=== PATIENT | female | born 1960 | race Caucasian/White ===

== ENCOUNTER 2016-05-06 15:13 | Emergency (ER) | payer OTHER ==
[~2016-05-06 15:13] MED LIST: /ESCI20TA; CETI10TA; ESTR3TA; IBUP800T; PREM0.9T; VICO5TAB
[2016-05-06 15:53] LABS: BASO % 0.6 % (0.0-1.0); EOS # 0.2 K/mm3 (0.0-0.50); EOS % 3.8 % (0.0-3.0); LARGE UNSTAINED CELL # 0.3 K/mm3 (0.0-0.4); LARGE UNSTAINED CELL % 4.7 % (0.0-4.0); LYMPH # 1.7 K/mm3 (1.5-4.5); LYMPH % 29.8 % (24.0-44.0); MEAN CORPUSCULAR HEMOGLOBIN 30.4 pg (27.0-33.0); MEAN CORPUSCULAR HGB CONC 34.5 g/dl (32.0-36.5); MEAN CORPUSCULAR VOLUME 88.2 fl (80.0-96.0); MONO # 0.3 K/mm3 (0.0-0.8); MONO % 5.5 % (0.0-5.0); NEUTROPHILS # 3.1 K/mm3 (1.8-7.7); NEUTROPHILS % 55.6 % (36.0-66.0); PLATELET COUNT, AUTOMATED 193 k/mm3 (150-450); RED CELL DISTRIBUTION WIDTH 12.2 % (11.5-14.5); WHITE BLOOD COUNT 5.6 K/mm3 (4.0-10.0)
[2016-05-06] MEDS ORDERED: ASPIRIN 81 MG CHEW TABLET As Ordered ONE (16:00)
[2016-05-06 16:09] LABS: ALBUMIN 3.5 GM/DL (3.2-5.2); ALBUMIN/GLOBULIN RATIO 0.88 (1.00-1.93); ALKALINE PHOSPHATASE 72 U/L (45-117); ALT/SGPT 39 U/L (12-78); ANION GAP 7 MEQ/L (8-16); AST/SGOT 25 U/L (15-37); BILIRUBIN,DIRECT 0.1 MG/DL (0.0-0.2); BILIRUBIN,TOTAL 0.4 MG/DL (0.2-1.0); BLOOD UREA NITROGEN 11 MG/DL (7-18); CALCIUM LEVEL 9.1 MG/DL (8.5-10.1); CARBON DIOXIDE LEVEL 32 MEQ/L (21-32); CHLORIDE LEVEL 105 MEQ/L (98-107); CREATININE FOR GFR 0.82 MG/DL (0.55-1.02); GLOMERULAR FILTRATION RATE > 60.0 (>51); GLUCOSE, FASTING 93 MG/DL (70-105); POTASSIUM SERUM 3.7 MEQ/L (3.5-5.1); SODIUM LEVEL 144 MEQ/L (136-145); TOTAL PROTEIN 7.5 GM/DL (6.4-8.2)
--- NOTE | 2016-05-06 17:10 | REP ---
Clinical: Chest pain . Comparison: None . Findings: The mediastinum and cardiac silhouette are stable and within normal limits for portable technique. The lung felix are clear without acute consolidation, effusion, or pneumothorax. Skeletal structures are intact. Impression: Normal portable chest x-ray Signed by Sincere Rolon MD 05/06/2016 05:02 P
--- NOTE | 2016-05-06 22:54 | EDDOCDS ---
Physician Documentation [facility] Name: Destinee Lay Age: 55 yrs Sex: Female : 1960 Arrival Date: 05/06/2016 Time: 15:13 Bed OBSERVATION Private MD: DEVANTE Newell Disposition: 05/06/16 22:44 Discharged to Home/Self Care. Impression: Chest pain, unspecified. - Condition is Stable. - Prescriptions for Aspirin 81 mg - take 1 tablet by ORAL route once daily; 90 tablet. - Medication Reconciliation, Local Pharmacy Hours form. - Follow up: Rob Atkinson; When: Call to arrange an appointment; Reason: Recheck today's complaints. - Problem is new. - Symptoms have improved. HPI: 05/06 15:50 This 55 yrs old Female presents to ER via Ambulance with complaints of Chest pc Pressure. 15:50 The history is obtained from the patient. She has multiple complaints. She has not pc "felt herself" for 2 weeks without being able to describe what she means; she was started on a statin 10 days ago for cholesterol and developed n/v/d 2 days later, for which she was seen at an urgent care and treated with Zofran; she has chronic right ear pressure, for many years that has been bothering her more often lately; she had an episode of feeling dizzy upon standing 2 days ago and describes the room spinning which no longer occurs; and the reason for her EMS call today was that she has been having pain in her left upper arm that radiates into her neck and left upper chest that started 16 hours ago and is still ongoing. At their worst, the symptoms were mild. In the emergency department, the symptoms are unchanged. There were no modifying factors noted. Historical: - Allergies: Codeine Sulfate (Vomit); - Home Meds: 1. escitalopram oxalate 20 mg oral tab 1 tab once daily (Last dose: 05/06/2016 09:00) 2. cetirizine 10 mg oral chew 1 tab once daily (Last dose: 05/05/2016 09:00) 3. pravastatin 40 mg oral tab 1 tab once daily (Last dose: 05/05/2016 09:00) 4. Augmentin 875-125 mg Oral tab 1 tab every 12 hours (Last dose: 04/30/2016) 5. ondansetron HCl 4 mg Oral tab 4 mg every 8 hours (Last dose: 05/02/2016) - PMHx: ankylosing spondolosis; Depression; HLAB27; Seasonal Allergies; sinus infection; - PSHx: 2 c-sections; Hysterectomy; - The history from nurses notes was reviewed: and I agree with what is documented. - Social history: Smoking status: Patient states was never smoker of tobacco. No barriers to communication noted, The patient speaks fluent Malagasy, Speaks appropriately for age. - : The pt / caregiver states he / she is not on anticoagulants. Home medication list is obtained from the patient, pill bottles. - Hospitalizations: : No recent hospitalization is reported. - Exposure Risk Screening:: None identified. - Immunization history:: All immunizations up-to-date. - Family history: Not pertinent. - Social history:: the patient is a non-smoker, the patient does not drink alcohol. 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 pc Exam: 15:50 General Appearance: no acute distress, alert. pc 15:50 EENT: normal eye inspection, ears, nose and throat normal, pharynx normal, mucous membranes moist 15:50 Neck: The exam reveals no acute abnormalities. ROM is normal and painless. No nuchal rigidity is noted.. 15:50 Respiratory: no respiratory distress, normal breath sounds, chest non-tender. 15:50 CVS: regular pulse rate, regular rhythm, normal S1 and S2, no murmurs, strong peripheral pulses, normal capillary refill. 15:50 Abdomen: soft, non-tender, no organomegaly, normal bowel sounds. 15:50 Back: normal inspection. 15:50 Skin: skin color is normal, warm, dry. 15:50 Extremities: The extremities have a grossly normal appearance, are non-tender, without acute ROM abnormalities, no pedal edema. 15:50 Neuro: oriented x 3, cranial nerves normal as tested, no motor deficits, no sensory deficits, normal gait. 15:50 Psych: mood is depressed, affect is flat. Vital Signs: 15:31 BP 196 / 86; Pulse 62; Resp 20; Pulse Ox 97% on R/A; Weight 130.18 kg / 287 lbs (R); jmb Height 5 ft. 3 in. (160.02 cm) (R); Pain 9/10; 15:31 BP 196 / 86 (auto/); jmb 15:31 Pulse 62 MON; Pulse Ox 95% ; jmb 15:43 BP 170 / 88 LA Supine (man/lg); jmb 15:46 BP 180 / 87 (auto/); jmb 15:46 Pulse 66 MON; Pulse Ox 82% ; jmb 16:02 BP 184 / 84 (auto/); jmb 16:02 Pulse 66 MON; Pulse Ox 95% ; jmb 16:08 BP 176 / 79 (auto/); jmb 16:09 Pulse 70 MON; Pulse Ox 92% ; jmb 16:16 BP 158 / 75 (auto/); jmb 16:16 Pulse 54 MON; Pulse Ox 94% ; jmb 16:23 Temp 97.9(O); jmb 16:46 BP 154 / 72 (auto/); jmb 16:46 Pulse 58 MON; Pulse Ox 96% ; jmb 17:01 BP 149 / 70 (auto/); jmb 17:01 Pulse 54 MON; Pulse Ox 95% ; jmb 17:16 BP 149 / 72 (auto/); jmb 17:16 Pulse 54 MON; Pulse Ox 92% ; jmb 17:31 BP 151 / 79 (auto/); jmb 17:31 Pulse 54 MON; Pulse Ox 92% ; jmb 17:46 BP 160 / 72 (auto/); jmb 17:46 Pulse 54 MON; Pulse Ox 92% ; jmb 18:01 BP 158 / 71 (auto/); jmb 18:01 Pulse 60 MON; Pulse Ox 94% ; jmb 20:52 BP 141 / 75 (auto/); jmb 20:52 Pulse 56 MON; Pulse Ox 92% ; jmb 22:05 BP 134 / 65 (auto/); jmb 22:05 Pulse 56 MON; Pulse Ox 92% ; jmb 22:46 BP 142 / 75; Pulse 54; Resp 18; Temp 98.3(TE); Pulse Ox 95% on R/A; Pain 8/10; sonia 15:31 Body Mass Index 50.84 (130.18 kg, 160.02 cm) [place]renton MDM: 15:24 ECG WITH READING ER PHYS+CARDIAG ordered. EDMS 15:47 Aspirin Chewable Tablet 324 mg PO once ordered. pc 15:47 Interior Design Principal/Pulse Ox/q 30 min VS ordered. pc 15:47 IV Saline Lock ordered. pc 15:47 Rhythm Strip to chart ordered. pc 15:48 Test interpretation: EKG. pc 15:49 Basic Metabolic Profile Ordered. EDMS 15:49 CBC with Diff Ordered. EDMS 15:49 Cardiac Injury Profile Ordered. EDMS 15:49 Troponin Ordered. EDMS 15:49 Liver Profile Ordered. EDMS 15:49 Lipase Ordered. EDMS 15:49 portable chest Ordered. EDMS 15:50 Differential Diagnosis: chest pain for 16 hours with cardiac risk factors r/o ACS; pc multiple vague complaints without emergent presentation that may be evaluated by her PCP as an out-patient. Plan: labs, EKG, CXR, meds. 16:13 Basic Metabolic Profile Reviewed. pc 16:13 CBC with Diff Reviewed. pc 16:13 Liver Profile Reviewed. pc 16:13 Cardiac Injury Profile Reviewed. pc 16:13 Troponin Reviewed. pc 16:13 Lipase Reviewed. pc 16:14 Redraw CIP &Troponin (put time in details section) ordered. pc 16:14 Repeat EKG (put time details section) ordered. pc 16:22 Redraw CIP &Troponin (put time in details section) complete. deg 16:22 Repeat EKG (put time details section) complete. deg 16:23 CARDIAC MARKER PANEL Ordered. EDMS 16:24 ECG WITH READING ER PHYS ordered. EDMS 16:28 Financial registration complete. zo 16:29 [facility] Agreement was scanned into [employer] and attached to record. zo 22:41 CARDIAC MARKER PANEL Reviewed. cs11 22:41 portable chest Reviewed. cs11 22:42 ED course: Asked to follow second set of cardiac markers and EKG. EKG with sinus rate cs11 at 56 and unchanged morphology from the first. The cardiac markers are also normal.. EC:48 Rate is 61 beats/min. Rhythm is regular, Normal Sinus Rhythm. QRS [place] is Normal. IN pc interval is normal. QRS interval is normal. QT interval is normal. No Q waves. T waves are Inverted in leads III, V1, V2. No ST changes noted. Clinical impression: Normal Sinus Rhythm and Nonspecific ST-T changes. No change from previous ECG in January,. Administered Medications: 16:02 Drug: Aspirin 324 mg [aspirin 81 mg chewable tablet (4 tabs)] Route: PO; dara Signatures: Dispatcher [employer] Christopher Porter MD MD pc Karley Ernst, Gauge And Weigh Machine Adjuster Unit deg Clarisa Thorne Craig, DO DO cs11 Alvaro Ventura,RN RN turnerb The chart was reviewed and I authenticate all verbal orders and agree with the evaluation and treatment provided.Attachments: 16:29 [facility] Payment Agreement zo [email or web address]
--- NOTE | 2016-05-06 22:54 | EDDOCDS ---
Nurse's Notes [facility] Name: Destinee Lay Age: 55 yrs Sex: Female : 1960 Arrival Date: 05/06/2016 Time: 15:13 Bed OBSERVATION Private MD: [facility] Diagnosis: Chest pain, unspecified Presentation: 05/06 15:18 Presenting complaint: EMS states: Patient reports of chest pressure and radiates up jmb behind ears. Pain started 24 hours ago. Patient reports only moving around in bedroom when pressure started. Patient reports when she moves she gets dizzy and nausea, relieved by rest. Patient has not taken her bp meds today, 170/110 by EMS. Aspirin was not taken prior to arrival. Adult Sepsis Screening: The patient does not have new or worsening altered mentation. Patient's respiratory rate is less than 22. Systolic blood pressure is greater than 100. Patient has a qSOFA score of 0- Negative Sepsis Screen. Suicide/Homicide risk assessment- the patient denies having any suicidal and/or homicidal ideations and does not present with any other emotional, behavioral or mental health complaints. 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 Transition of care: patient was not received from another setting of care. 15:18 Acuity: JAZIEL Level 3 [facility] 15:18 Method Of Arrival: Ambulance [facility] Triage Assessment: 15:26 General: Appears in no apparent distress, Behavior is appropriate for age, cooperative. b Pain: Location: chest Pain currently is 9 out of 10 on a pain scale. Pain radiates to to neck. HIV screening NA for this visit Offered previously. Neurological: Level of Consciousness is awake, alert, obeys commands, Oriented to person, place, time, Material Control Analyst are equal bilaterally Speech is normal, Facial symmetry appears normal, Facial symmetry: tongue is midline. Cardiovascular: Capillary refill < 3 seconds Heart tones present Pulses are all present. Rhythm is regular Chest pain is described as mild, radiates neck episodes are intermittent began 24 hours ago. Respiratory: Airway is patent Respiratory effort is even, unlabored, Respiratory pattern is regular, symmetrical, Breath sounds are clear bilaterally. GI: Abdomen is obese, Bowel sounds present X 4 quads. Abd is soft and non tender X 4 quads. Derm: Skin is pink, warm & dry. Musculoskeletal: Range of motion intact in all extremities. DIRECTOR CLIENT: 15:26 LMP N/A - Hysterectomy jmb Historical: - Allergies: Codeine Sulfate (Vomit); - Home Meds: 1. escitalopram oxalate 20 mg oral tab 1 tab once daily (Last dose: 05/06/2016 09:00) 2. cetirizine 10 mg oral chew 1 tab once daily (Last dose: 05/05/2016 09:00) 3. pravastatin 40 mg oral tab 1 tab once daily (Last dose: 05/05/2016 09:00) 4. Augmentin 875-125 mg Oral tab 1 tab every 12 hours (Last dose: 04/30/2016) 5. ondansetron HCl 4 mg Oral tab 4 mg every 8 hours (Last dose: 05/02/2016) - PMHx: ankylosing spondolosis; Depression; HLAB27; Seasonal Allergies; sinus infection; - PSHx: 2 c-sections; Hysterectomy; - The history from nurses notes was reviewed: and I agree with what is documented. - Social history: Smoking status: Patient states was never smoker of tobacco. No barriers to communication noted, The patient speaks fluent Kos[place], Speaks appropriately for age. - : The pt / caregiver states he / she is not on anticoagulants. Home medication list is obtained from the patient, pill bottles. - Hospitalizations: : No recent hospitalization is reported. - Exposure Risk Screening:: None identified. - Immunization history:: All immunizations up-to-date. - Family history: Not pertinent. - Social history:: the patient is a non-smoker, the patient does not drink alcohol. Screenin:04 Screening information is obtained from the patient. Fall risk: No risks identified. jmb Assistance ADL's: requires no assistance with activities of daily living. Abuse/DV Screen: The patient / caregiver reports he/she is: not in a situation that causes fear, pain or injury. Nutritional screening: No deficits noted. home support is adequate. 22:51 Advance Directives: Currently, there is no health care proxy. There is no active DNR b order. There is no living will. There is no Power of Hand Cloth Examiner. Assessment: 16:04 General: Appears in no apparent distress, Behavior is appropriate for age, cooperative, jmb Patient up to commode with assist of GENERAL STORE MANAGER. NO voiced complaints at this time. . Neurological: Level of Consciousness is awake, alert, obeys commands, Oriented to person, place, time, Speech is normal, Facial symmetry appears normal, Facial symmetry: tongue is midline. Cardiovascular: Capillary refill < 3 seconds Heart tones present Pulses are all present. Rhythm is sinus rhythm No ectopy. Respiratory: Airway is patent Respiratory effort is even, unlabored, Respiratory pattern is regular, symmetrical, Breath sounds are clear bilaterally. GI: Abdomen is obese, Bowel sounds present X 4 quads. Abd is soft and non tender X 4 quads. Derm: Skin is pink, warm & dry. Musculoskeletal: Range of motion intact in all extremities. 16:49 General: Appears in no apparent distress, comfortable, Behavior is appropriate for age, jmb cooperative, Patient laying on stretcher with at bedside. Patient voices no complaints at this time. . Neurological: Level of Consciousness is awake, alert, obeys commands, Oriented to person, place, time. Respiratory: Airway is patent Respiratory effort is even, unlabored, Respiratory pattern is regular, symmetrical. 17:20 General: Appears in no apparent distress, comfortable, Behavior is appropriate for age, jmb cooperative, Patient laying on stretcher with family at bedside. Patient denies discomfort at this time. . Neurological: Level of Consciousness is awake, alert, obeys commands, Oriented to person, place, time. Respiratory: Airway is patent Respiratory effort is even, unlabored, Respiratory pattern is regular, symmetrical. 18:12 General: Appears in no apparent distress, comfortable, Behavior is appropriate for age, jmb cooperative, Patient laying on stretcher, patient denies discomfort at this time. . Neurological: Level of Consciousness is awake, alert, obeys commands, Oriented to person, place, time, Speech is normal. Respiratory: Airway is patent Respiratory effort is even, unlabored, Respiratory pattern is regular, symmetrical. 18:58 General: Appears in no apparent distress, comfortable, Behavior is appropriate for age, jmb cooperative. Neurological: Level of Consciousness is awake, alert, obeys commands, Oriented to person, place, time. Respiratory: Airway is patent Respiratory effort is even, unlabored, Respiratory pattern is regular, symmetrical. 19:30 General: Appears in no apparent distress, comfortable, Behavior is appropriate for age, jmb cooperative, Patient laying on stretcher, voices no complaints at this time. . Neurological: Level of Consciousness is awake, alert, obeys commands, Oriented to person, place, time. Respiratory: Airway is patent Respiratory effort is even, unlabored, Respiratory pattern is regular, symmetrical. 20:17 General: Appears in no apparent distress, comfortable, Behavior is appropriate for age, jmb cooperative. Neurological: Level of Consciousness is awake, alert, obeys commands, Oriented to person, place, time. Respiratory: Airway is patent Respiratory effort is even, unlabored, Respiratory pattern is regular, symmetrical. 20:54 General: Appears in no apparent distress, comfortable, Behavior is appropriate for age, jmb cooperative, Patient laying on stretcher watching television with at bedside. NO voiced complaints at this time. . Neurological: Level of Consciousness is awake, alert, obeys commands, Oriented to person, place, time. Respiratory: Airway is patent Respiratory effort is even, unlabored, Respiratory pattern is regular, symmetrical. 22:13 General: Appears in no apparent distress, comfortable, Behavior is appropriate for age, jmb cooperative, Patient laying on stretcher watching television. Patient at bedside. Second set of labs drawn per orders. No complaints voiced at this time. . Neurological: Level of Consciousness is awake, alert, obeys commands, Oriented to person, place, time. Respiratory: Airway is patent Respiratory effort is even, unlabored, Respiratory pattern is regular, symmetrical. 22:51 General: Patient instructed on discharge instructions. Patient asked if there were any b questions regarding discharge instructions, patient stated no. IV discontinued per hospital policy. Patient signed discharge instructions. Patient discharged in stable condition. . Vital Signs: 15:31 BP 196 / 86; Pulse 62; Resp 20; Pulse Ox 97% on R/A; Weight 130.18 kg (R); Height 5 ft. jmb 3 in. (160.02 cm) (R); Pain 9/10; 15:31 BP 196 / 86 (auto/); jmb 15:31 Pulse 62 MON; Pulse Ox 95% ; jmb 15:43 BP 170 / 88 LA Supine (man/lg); jmb 15:46 BP 180 / 87 (auto/); jmb 15:46 Pulse 66 MON; Pulse Ox 82% ; jmb 16:02 BP 184 / 84 (auto/); jmb 16:02 Pulse 66 MON; Pulse Ox 95% ; jmb 16:08 BP 176 / 79 (auto/); jmb 16:09 Pulse 70 MON; Pulse Ox 92% ; jmb 16:16 BP 158 / 75 (auto/); jmb 16:16 Pulse 54 MON; Pulse Ox 94% ; jmb 16:23 Temp 97.9(O); jmb 16:46 BP 154 / 72 (auto/); jmb 16:46 Pulse 58 MON; Pulse Ox 96% ; jmb 17:01 BP 149 / 70 (auto/); jmb 17:01 Pulse 54 MON; Pulse Ox 95% ; jmb 17:16 BP 149 / 72 (auto/); jmb 17:16 Pulse 54 MON; Pulse Ox 92% ; jmb 17:31 BP 151 / 79 (auto/); jmb 17:31 Pulse 54 MON; Pulse Ox 92% ; jmb 17:46 BP 160 / 72 (auto/); jmb 17:46 Pulse 54 MON; Pulse Ox 92% ; jmb 18:01 BP 158 / 71 (auto/); jmb 18:01 Pulse 60 MON; Pulse Ox 94% ; jmb 20:52 BP 141 / 75 (auto/); jmb 20:52 Pulse 56 MON; Pulse Ox 92% ; jmb 22:05 BP 134 / 65 (auto/); jmb 22:05 Pulse 56 MON; Pulse Ox 92% ; jmb 22:46 BP 142 / 75; Pulse 54; Resp 18; Temp 98.3(TE); Pulse Ox 95% on R/A; Pain 8/10; sonia 15:31 Body Mass Index 50.84 (130.18 kg, 160.02 cm) [facility] Vitals: 15:26 Log In Time N/A - ambulance arrival. [facility] ED Course: 15:14 Patient visited by Virgie Figueroa PCA. rs6 15:14 [facility] is Private Physician. rs6 15:14 Patient moved to Waiting rs6 15:14 Patient moved to 11 rs6 15:15 Christopher Castro MD is Attending Physician. pc 15:20 Triage Initiated [facility] 15:37 Patient visited by Gigi Zuniga. tk 15:37 EKG done. (by ED staff). Reviewed by Christopher Castro MD. tk 15:51 Lipase Sent. ms18 15:51 Liver Profile Sent. ms18 15:51 Basic Metabolic Profile Sent. ms18 15:51 CBC with Diff Sent. ms18 15:51 Cardiac Injury Profile Sent. ms18 15:51 Troponin Sent. ms18 15:51 Inserted saline lock: 20 gauge in right antecubital area and blood collected. The ms18 patient tolerated the procedure well. 15:56 Patient visited by Christopher Castro MD. pc 16:04 The patient / caregiver is instructed regarding the plan of care and ED course. Cardiac jmb monitor on. Pulse ox on. NIBP on. 16:06 Patient visited by Alvaro Ventura RN. jmb 16:14 Patient visited by Terri Ventura PCA. bnb 16:16 Pt greeted and oriented to ED. Patient advised of names of staff involved in care, bnb location of call salas, wait times and NPO status. Accompanied by Significant Other, Side rails up X 1. Side rails up X2. Assisted to bedside commode. 16:17 Patient visited by Terri Ventura PCA. bnb 16:29 [facility] Payment Agreement was scanned into [employer] and attached to record. zo 16:50 Patient visited by Alvaro Ventura RN. jmb 17:22 Patient visited by Alvaro Ventura RN. jmb 17:52 portable chest Returned. EDMS 18:13 Patient visited by Alvaro Ventura RN. jmb 18:52 Attending Physician role handed off by Christopher Castro MD cs11 18:52 Surinder White DO is Attending Physician. cs11 18:53 Patient moved to OBSERVATION cs11 18:58 Patient visited by Alvaro Ventura RN. jmb 20:18 Patient visited by Alvaro Ventura RN. jmb 20:54 Patient visited by Alvaro Ventura RN. jmb 21:56 Patient visited by Kailey Duron PCA. sonia 21:56 EKG done. (by ED staff). Reviewed by Surinder White DO. sonia 22:06 CARDIAC MARKER PANEL Sent. cln 22:16 Patient visited by Alvaro Ventura RN. jmb 22:44 Rob Atkinson is Referral Physician. cs11 22:47 Patient visited by Kailey Duron PCA. sonia 22:51 Discontinued lock intact, bleeding controlled, pressure dressing applied, No jmb redness/swelling at site. No procedures done that require assistance. Administered Medications: 16:02 Drug: Aspirin 324 mg [aspirin 81 mg chewable tablet (4 tabs)] Route: PO; jmb Order Results: Lab Order: Basic Metabolic Profile; SPEC'M 05/06/16 15:34 Test: GLUCOSE, FASTING; Value: 93; Range: 70-105; Units: MG/DL; Status: F Test: BLOOD UREA NITROGEN; Value: 11; Range: 7-18; Units: MG/DL; Status: F Test: CREATININE FOR GFR; Value: 0.82; Range: 0.55-1.02; Units: MG/DL; Status: F Test: GLOMERULAR FILTRATION RATE; Value: > 60.0; Range: >51; Status: F Test: SODIUM LEVEL; Value: 144; Range: 136-145; Units: MEQ/L; Status: F Test: POTASSIUM SERUM; Value: 3.7; Range: 3.5-5.1; Units: MEQ/L; Status: F Test: CHLORIDE LEVEL; Value: 105; Range: 98-107; Units: MEQ/L; Status: F Test: CARBON DIOXIDE LEVEL; Value: 32; Range: 21-32; Units: MEQ/L; Status: F Test: ANION GAP; Value: 7; Range: 8-16; Abnormal: Below low normal; Units: MEQ/L; Status: F Test: CALCIUM LEVEL; Value: 9.1; Range: 8.5-10.1; Units: MG/DL; Status: F Test Note: ; Units are mL/min/1.73 m2 Chronic Kidney Disease Staging per NKF: Stage I & II GFR >=60 Normal to Mildly Decreased Stage III GFR 30-59 Moderately Decreased Stage IV GFR 15-29 Severely Decreased Stage V GFR <15 Very Little GFR Left ESRD GFR <15 on IT PROJECT COORDINATOR Lab Order: CBC with Diff; SPEC'M 05/06/16 15:34 Test: WHITE BLOOD COUNT; Value: 5.6; Range: 4.0-10.0; Units: K/mm3; Status: F Test: RED BLOOD COUNT; Value: 4.68; Range: 4.00-5.40; Units: M/mm3; Status: F Test: HEMOGLOBIN; Value: 14.2; Range: 12.0-16.0; Units: g/dl; Status: F Test: HEMATOCRIT; Value: 41.3; Range: 36.0-47.0; Units: %; Status: F Test: MEAN CORPUSCULAR VOLUME; Value: 88.2; Range: 80.0-96.0; Units: fl; Status: F Test: MEAN CORPUSCULAR HEMOGLOBIN; Value: 30.4; Range: 27.0-33.0; Units: pg; Status: F Test: MEAN CORPUSCULAR HGB CONC; Value: 34.5; Range: 32.0-36.5; Units: g/dl; Status: F Test: RED CELL DISTRIBUTION WIDTH; Value: 12.2; Range: 11.5-14.5; Units: %; Status: F Test: PLATELET COUNT, AUTOMATED; Value: 193; Range: 150-450; Units: k/mm3; Status: F Test: NEUTROPHILS %; Value: 55.6; Range: 36.0-66.0; Units: %; Status: F Test: LYMPH %; Value: 29.8; Range: 24.0-44.0; Units: %; Status: F Test: MONO %; Value: 5.5; Range: 0.0-5.0; Abnormal: Above high normal; Units: %; Status: F Test: EOS %; Value: 3.8; Range: 0.0-3.0; Abnormal: Above high normal; Units: %; Status: F Test: BASO %; Value: 0.6; Range: 0.0-1.0; Units: %; Status: F Test: LARGE UNSTAINED CELL %; Value: 4.7; Range: 0.0-4.0; Abnormal: Above high normal; Units: %; Status: F Test: NEUTROPHILS #; Value: 3.1; Range: 1.8-7.7; Units: K/mm3; Status: F Test: LYMPH #; Value: 1.7; Range: 1.5-4.5; Units: K/mm3; Status: F Test: MONO #; Value: 0.3; Range: 0.0-0.8; Units: K/mm3; Status: F Test: EOS #; Value: 0.2; Range: 0.0-0.50; Units: K/mm3; Status: F Test: BASO #; Value: 0.0; Range: 0.0-0.2; Units: K/mm3; Status: F Test: LARGE UNSTAINED CELL #; Value: 0.3; Range: 0.0-0.4; Units: K/mm3; Status: F Lab Order: Cardiac Injury Profile; [facility]' 05/06/16 15:34 Test: CPK CREATINE PHOSPHOKINASE; Value: 74; Range: 26-192; Units: U/L; Status: F Test: CK-MB VALUE MASS; Value: 1.0; Range: 0.0-3.6; Units: NG/ML; Status: F Test: MB/CK RELATIVE INDEX; Value: 1.35; Range: < OR =4; Status: F Test Note: ; DIAGNOSIS CRITERIA MMB ng/ml Relative Index (RI) NON-AMI < or = 5 N/A PRO ZONE > 5 < or = 4 AMI > 5 > 4 Lab Order: Troponin; SPEC' 05/06/16 15:34 Test: TROPONIN I; Value: < 0.02; Range: < 0.10; Units: NG/ML; Status: F Test Note: ; Troponin I Reference Interval for Siemens Proximex LOCI: 99th Percentile= 0.00-0.045 ng/ml Risk Stratification: <= 0.10 ng/ml Decreased Risk for Adverse Clinical Events. 0.10-1.50 ng/ml Increased Risk for Adverse Clinical Events. Evaluation of additional criterion and/or repeat testing in 2-6 hours is suggested to rule out myocardial damage. >= 1.50 ng/ml Indicative of Myocardial Injury. Lab Order: Liver Profile; SPEC'M 05/06/16 15:34 Test: AST/SGOT; Value: 25; Range: 15-37; Units: U/L; Status: F Test: ALT/SGPT; Value: 39; Range: 12-78; Units: U/L; Status: F Test: ALKALINE PHOSPHATASE; Value: 72; Range: 45-117; Units: U/L; Status: F Test: BILIRUBIN,TOTAL; Value: 0.4; Range: 0.2-1.0; Units: MG/DL; Status: F Test: BILIRUBIN,DIRECT; Value: 0.1; Range: 0.0-0.2; Units: MG/DL; Status: F Test: TOTAL PROTEIN; Value: 7.5; Range: 6.4-8.2; Units: GM/DL; Status: F Test: ALBUMIN; Value: 3.5; Range: 3.2-5.2; Units: GM/DL; Status: F Test: ALBUMIN/GLOBULIN RATIO; Value: 0.88; Range: 1.00-1.93; Abnormal: Below low normal; Status: F Lab Order: Lipase; SPEC'M 05/06/16 15:34 Test: LIPASE; Value: 212; Range: 73-393; Units: U/L; Status: F Lab Order: CARDIAC MARKER PANEL; SPEC'M 05/06/16 22:06 Test: CPK CREATINE PHOSPHOKINASE; Value: 55; Range: 26-192; Units: U/L; Status: F Test: CK-MB VALUE MASS; Value: 1.0; Range: 0.0-3.6; Units: NG/ML; Status: F Test: MB/CK RELATIVE INDEX; Value: 1.81; Range: < OR =4; Status: F Test: TROPONIN I; Value: < 0.02; Range: < 0.10; Units: NG/ML; Status: F Test Note: ; DIAGNOSIS CRITERIA MMB ng/ml Relative Index (RI) NON-AMI < or = 5 N/A PRO ZONE > 5 < or = 4 AMI > 5 > 4 Radiology Order: portable chest Test: portable chest REASON FOR EXAMINATION: Chest Pain; Clinical: Chest pain .; ; Comparison: None .; ; Findings:; The mediastinum and cardiac silhouette are stable and within normal limits for; portable technique. The lung felix are clear without acute consolidation,; effusion, or pneumothorax. Skeletal structures are intact.; ; Impression:; Normal portable chest x-ray; ; ; Signed by; Sincere Rolon MD 05/06/2016 05:02 P; Outcome: 22:44 Discharge ordered by Provider. [facility] 22:51 Discharge Assessment: Patient awake, alert and oriented x 3. No cognitive and/or jmb functional deficits noted. Patient verbalized understanding of disposition instructions. Patient awake and alert. obeys commands, Oriented to person, place and time. Patient verbalized understanding of disposition instructions. Patient has no functional deficits. patient administered narcotics - no. The following High Risk Discharge criteria are identified: None. Discharged to home ambulatory, with significant other. Condition: stable. Discharge instructions given to patient, Instructed on discharge instructions, follow up and referral plans. medication usage, Demonstrated understanding of instructions, medications, Pt was receptive of discharge instructions/ teaching. Prescriptions given X 1. No special radiology studies were completed. Property sent home with patient. 22:54 Patient left the ED. dara Signatures: Dispatcher [employer] EDMS Christopher Castro MD MD pc Olin, Zoeann zo Ewald, Destiny, GENERAL STORE MANAGER GENERAL STORE MANAGER Surinder Fall, DO DO cs11 Alvaro Ventura,RN RN Agnes Smith RN RN ms18 Virgie Figueroa, GENERAL STORE MANAGER GENERAL STORE MANAGER rs6 Gigi Zuniga Crystal, GENERAL STORE MANAGER GENERAL STORE MANAGER Terri Cornejo, GENERAL STORE MANAGER GENERAL STORE MANAGER celinab [email or web address]
--- NOTE | 2016-05-07 12:52 | ECGEPIP ---
Stationary ECG Study [facility] - ED Test Date: 2016-05-06 Pat Name: ENRIQUE BARRY Department: Room: - Gender: F Reporting Specialist: tk : 1960 Requested By: Christopher Jules Order Number: [id number] Reading MD: Larissa Roberts Measurements Intervals [place] Rate: 61 P: 44 VA: 167 QRS: -3 QRSD: 108 T: 18 QT: 442 QTc: 449 Interpretive Statements SINUS RHYTHM NSTTW ABNORMALITY SIMILAR 01/22/12 Electronically Signed On 05-07-2016 12:52:30 EST by Larissa Roberts
--- NOTE | 2016-05-07 12:57 | ECGEPIP ---
Stationary ECG Study [facility] - ED Test Date: 2016-05-06 Pat Name: ENRIQUE BARRY Department: Room: - Gender: F Freight Forwarder: VickB: 1960 Requested By: Christopher Jules Order Number: [id number] Reading MD: Larissa Roberts Measurements Intervals [place] Rate: 56 P: 29 [place]: 184 QRS: -5 QRSD: 106 T: 9 QT: 459 QTc: 443 Interpretive Statements SINUS BRADYCARDIA LOW QRS VOLTAGE IN PRECORDIAL LEADS NONSPECIFIC T-WAVE ABNORMALITY SIMILAR 05/06/16 Electronically Signed On 05-07-2016 12:57:03 EST by Larissa Roberts
--- NOTE | 2016-05-08 23:55 | EDDOCDS ---
Physician Documentation [facility] Name: Destinee Lay Age: 55 yrs Sex: Female : 1960 Arrival Date: 05/06/2016 Time: 15:13 Bed OBSERVATION Private MD: DEVANTE Newell Disposition: 05/06/16 22:44 Discharged to Home/Self Care. Impression: Chest pain, unspecified. - Condition is Stable. - Prescriptions for Aspirin 81 mg - take 1 tablet by ORAL route once daily; 90 tablet. - Medication Reconciliation, Local Pharmacy Hours form. - Follow up: Rob Atkinson; When: Call to arrange an appointment; Reason: Recheck today's complaints. - Problem is new. - Symptoms have improved. HPI: 05/06 15:50 This 55 yrs old Female presents to ER via Ambulance with complaints of Chest pc Pressure. 15:50 The history is obtained from the patient. She has multiple complaints. She has not pc "felt herself" for 2 weeks without being able to describe what she means; she was started on a statin 10 days ago for cholesterol and developed n/v/d 2 days later, for which she was seen at an urgent care and treated with Zofran; she has chronic right ear pressure, for many years that has been bothering her more often lately; she had an episode of feeling dizzy upon standing 2 days ago and describes the room spinning which no longer occurs; and the reason for her EMS call today was that she has been having pain in her left upper arm that radiates into her neck and left upper chest that started 16 hours ago and is still ongoing. At their worst, the symptoms were mild. In the emergency department, the symptoms are unchanged. There were no modifying factors noted. Historical: - Allergies: Codeine Sulfate (Vomit); - Home Meds: 1. escitalopram oxalate 20 mg oral tab 1 tab once daily (Last dose: 05/06/2016 09:00) 2. cetirizine 10 mg oral chew 1 tab once daily (Last dose: 05/05/2016 09:00) 3. pravastatin 40 mg oral tab 1 tab once daily (Last dose: 05/05/2016 09:00) 4. Augmentin 875-125 mg Oral tab 1 tab every 12 hours (Last dose: 04/30/2016) 5. ondansetron HCl 4 mg Oral tab 4 mg every 8 hours (Last dose: 05/02/2016) - PMHx: ankylosing spondolosis; Depression; HLAB27; Seasonal Allergies; sinus infection; - PSHx: 2 c-sections; Hysterectomy; - The history from nurses notes was reviewed: and I agree with what is documented. - Social history: Smoking status: Patient states was never smoker of tobacco. No barriers to communication noted, The patient speaks fluent Belarusian, Speaks appropriately for age. - : The pt / caregiver states he / she is not on anticoagulants. Home medication list is obtained from the patient, pill bottles. - Hospitalizations: : No recent hospitalization is reported. - Exposure Risk Screening:: None identified. - Immunization history:: All immunizations up-to-date. - Family history: Not pertinent. - Social history:: the patient is a non-smoker, the patient does not drink alcohol. 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 pc Exam: 15:50 General Appearance: no acute distress, alert. pc 15:50 EENT: normal eye inspection, ears, nose and throat normal, pharynx normal, mucous membranes moist 15:50 Neck: The exam reveals no acute abnormalities. ROM is normal and painless. No nuchal rigidity is noted.. 15:50 Respiratory: no respiratory distress, normal breath sounds, chest non-tender. 15:50 CVS: regular pulse rate, regular rhythm, normal S1 and S2, no murmurs, strong peripheral pulses, normal capillary refill. 15:50 Abdomen: soft, non-tender, no organomegaly, normal bowel sounds. 15:50 Back: normal inspection. 15:50 Skin: skin color is normal, warm, dry. 15:50 Extremities: The extremities have a grossly normal appearance, are non-tender, without acute ROM abnormalities, no pedal edema. 15:50 Neuro: oriented x 3, cranial nerves normal as tested, no motor deficits, no sensory deficits, normal gait. 15:50 Psych: mood is depressed, affect is flat. Vital Signs: 15:31 BP 196 / 86; Pulse 62; Resp 20; Pulse Ox 97% on R/A; Weight 130.18 kg / 287 lbs (R); jmb Height 5 ft. 3 in. (160.02 cm) (R); Pain 9/10; 15:31 BP 196 / 86 (auto/); jmb 15:31 Pulse 62 MON; Pulse Ox 95% ; jmb 15:43 BP 170 / 88 LA Supine (man/lg); jmb 15:46 BP 180 / 87 (auto/); jmb 15:46 Pulse 66 MON; Pulse Ox 82% ; jmb 16:02 BP 184 / 84 (auto/); jmb 16:02 Pulse 66 MON; Pulse Ox 95% ; jmb 16:08 BP 176 / 79 (auto/); jmb 16:09 Pulse 70 MON; Pulse Ox 92% ; jmb 16:16 BP 158 / 75 (auto/); jmb 16:16 Pulse 54 MON; Pulse Ox 94% ; jmb 16:23 Temp 97.9(O); jmb 16:46 BP 154 / 72 (auto/); jmb 16:46 Pulse 58 MON; Pulse Ox 96% ; jmb 17:01 BP 149 / 70 (auto/); jmb 17:01 Pulse 54 MON; Pulse Ox 95% ; jmb 17:16 BP 149 / 72 (auto/); jmb 17:16 Pulse 54 MON; Pulse Ox 92% ; jmb 17:31 BP 151 / 79 (auto/); jmb 17:31 Pulse 54 MON; Pulse Ox 92% ; jmb 17:46 BP 160 / 72 (auto/); jmb 17:46 Pulse 54 MON; Pulse Ox 92% ; jmb 18:01 BP 158 / 71 (auto/); jmb 18:01 Pulse 60 MON; Pulse Ox 94% ; jmb 20:52 BP 141 / 75 (auto/); jmb 20:52 Pulse 56 MON; Pulse Ox 92% ; jmb 22:05 BP 134 / 65 (auto/); jmb 22:05 Pulse 56 MON; Pulse Ox 92% ; jmb 22:46 BP 142 / 75; Pulse 54; Resp 18; Temp 98.3(TE); Pulse Ox 95% on R/A; Pain 8/10; sonia 15:31 Body Mass Index 50.84 (130.18 kg, 160.02 cm) brenton MDM: 15:24 ECG WITH READING ER PHYS+CARDIAG ordered. EDMS 15:47 Aspirin Chewable Tablet 324 mg PO once ordered. pc 15:47 Passenger Service Manager/Pulse Ox/q 30 min VS ordered. pc 15:47 IV Saline Lock ordered. pc 15:47 Rhythm Strip to chart ordered. pc 15:48 Test interpretation: EKG. pc 15:49 Basic Metabolic Profile Ordered. EDMS 15:49 CBC with Diff Ordered. EDMS 15:49 Cardiac Injury Profile Ordered. EDMS 15:49 Troponin Ordered. EDMS 15:49 Liver Profile Ordered. EDMS 15:49 Lipase Ordered. EDMS 15:49 portable chest Ordered. EDMS 15:50 Differential Diagnosis: chest pain for 16 hours with cardiac risk factors r/o ACS; pc multiple vague complaints without emergent presentation that may be evaluated by her PCP as an out-patient. Plan: labs, EKG, CXR, meds. 16:13 Basic Metabolic Profile Reviewed. pc 16:13 CBC with Diff Reviewed. pc 16:13 Liver Profile Reviewed. pc 16:13 Cardiac Injury Profile Reviewed. pc 16:13 Troponin Reviewed. pc 16:13 Lipase Reviewed. pc 16:14 Redraw CIP &Troponin (put time in details section) ordered. pc 16:14 Repeat EKG (put time details section) ordered. pc 16:22 Redraw CIP &Troponin (put time in details section) complete. deg 16:22 Repeat EKG (put time details section) complete. deg 16:23 CARDIAC MARKER PANEL Ordered. EDMS 16:24 ECG WITH READING ER PHYS ordered. EDMS 16:28 Financial registration complete. zo 16:29 [facility] Payment Agreement was scanned into [employer] and attached to record. zo 22:41 CARDIAC MARKER PANEL Reviewed. cs11 22:41 portable chest Reviewed. cs11 22:42 ED course: Asked to follow second set of cardiac markers and EKG. EKG with sinus rate cs11 at 56 and unchanged morphology from the first. The cardiac markers are also normal.. 05/07 11:54 ECG/EKG was scanned into [employer] and attached to record. 05/08 12:46 PCR was scanned into [employer] and attached to record. gb EC/15 15:48 Rate is 61 beats/min. Rhythm is regular, Normal Sinus Rhythm. QRS [place] is Normal. [place] pc interval is normal. QRS interval is normal. QT interval is normal. No Q waves. T waves are Inverted in leads III, V1, V2. No ST changes noted. Clinical impression: Normal Sinus Rhythm and Nonspecific ST-T changes. No change from previous ECG in January,. Administered Medications: 16:02 Drug: Aspirin 324 mg [aspirin 81 mg chewable tablet (4 tabs)] Route: PO; dara Signatures: Dispatcher [employer] EDChristopher Stevens MD MD pc Murray, Denise, Weighmaster Unit deg Margo Garcia, Reg Reg gb Clarisa Thorne Craig, DO DO cs11 Alvaro Ventura,RN RN dara The chart was reviewed and I authenticate all verbal orders and agree with the evaluation and treatment provided.Attachments: 16:29 [facility] Payment Agreement zo 05/07 11:54 ECG/EKG gb Chart Complete MTDD
--- NOTE | 2016-05-08 23:55 | EDDOCDS ---
Physician Documentation [facility] Name: Destinee Lay Age: 55 yrs Sex: Female : 1960 Arrival Date: 05/06/2016 Time: 15:13 Bed OBSERVATION Private MD: DEVANTE Newell Disposition: 05/06/16 22:44 Discharged to Home/Self Care. Impression: Chest pain, unspecified. - Condition is Stable. - Prescriptions for Aspirin 81 mg - take 1 tablet by ORAL route once daily; 90 tablet. - Medication Reconciliation, Local Pharmacy Hours form. - Follow up: Rob Atkinson; When: Call to arrange an appointment; Reason: Recheck today's complaints. - Problem is new. - Symptoms have improved. HPI: 05/06 15:50 This 55 yrs old Female presents to ER via Ambulance with complaints of Chest pc Pressure. 15:50 The history is obtained from the patient. She has multiple complaints. She has not pc "felt herself" for 2 weeks without being able to describe what she means; she was started on a statin 10 days ago for cholesterol and developed n/v/d 2 days later, for which she was seen at an urgent care and treated with Zofran; she has chronic right ear pressure, for many years that has been bothering her more often lately; she had an episode of feeling dizzy upon standing 2 days ago and describes the room spinning which no longer occurs; and the reason for her EMS call today was that she has been having pain in her left upper arm that radiates into her neck and left upper chest that started 16 hours ago and is still ongoing. At their worst, the symptoms were mild. In the emergency department, the symptoms are unchanged. There were no modifying factors noted. Historical: - Allergies: Codeine Sulfate (Vomit); - Home Meds: 1. escitalopram oxalate 20 mg oral tab 1 tab once daily (Last dose: 05/06/2016 09:00) 2. cetirizine 10 mg oral chew 1 tab once daily (Last dose: 05/05/2016 09:00) 3. pravastatin 40 mg oral tab 1 tab once daily (Last dose: 05/05/2016 09:00) 4. Augmentin 875-125 mg Oral tab 1 tab every 12 hours (Last dose: 04/30/2016) 5. ondansetron HCl 4 mg Oral tab 4 mg every 8 hours (Last dose: 05/02/2016) - PMHx: ankylosing spondolosis; Depression; HLAB27; Seasonal Allergies; sinus infection; - PSHx: 2 c-sections; Hysterectomy; - The history from nurses notes was reviewed: and I agree with what is documented. - Social history: Smoking status: Patient states was never smoker of tobacco. No barriers to communication noted, The patient speaks fluent Iranian, Speaks appropriately for age. - : The pt / caregiver states he / she is not on anticoagulants. Home medication list is obtained from the patient, pill bottles. - Hospitalizations: : No recent hospitalization is reported. - Exposure Risk Screening:: None identified. - Immunization history:: All immunizations up-to-date. - Family history: Not pertinent. - Social history:: the patient is a non-smoker, the patient does not drink alcohol. 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 pc Exam: 15:50 General Appearance: no acute distress, alert. pc 15:50 EENT: normal eye inspection, ears, nose and throat normal, pharynx normal, mucous membranes moist 15:50 Neck: The exam reveals no acute abnormalities. ROM is normal and painless. No nuchal rigidity is noted.. 15:50 Respiratory: no respiratory distress, normal breath sounds, chest non-tender. 15:50 CVS: regular pulse rate, regular rhythm, normal S1 and S2, no murmurs, strong peripheral pulses, normal capillary refill. 15:50 Abdomen: soft, non-tender, no organomegaly, normal bowel sounds. 15:50 Back: normal inspection. 15:50 Skin: skin color is normal, warm, dry. 15:50 Extremities: The extremities have a grossly normal appearance, are non-tender, without acute ROM abnormalities, no pedal edema. 15:50 Neuro: oriented x 3, cranial nerves normal as tested, no motor deficits, no sensory deficits, normal gait. 15:50 Psych: mood is depressed, affect is flat. Vital Signs: 15:31 BP 196 / 86; Pulse 62; Resp 20; Pulse Ox 97% on R/A; Weight 130.18 kg / 287 lbs (R); jmb Height 5 ft. 3 in. (160.02 cm) (R); Pain 9/10; 15:31 BP 196 / 86 (auto/); jmb 15:31 Pulse 62 MON; Pulse Ox 95% ; jmb 15:43 BP 170 / 88 LA Supine (man/lg); jmb 15:46 BP 180 / 87 (auto/); jmb 15:46 Pulse 66 MON; Pulse Ox 82% ; jmb 16:02 BP 184 / 84 (auto/); jmb 16:02 Pulse 66 MON; Pulse Ox 95% ; jmb 16:08 BP 176 / 79 (auto/); jmb 16:09 Pulse 70 MON; Pulse Ox 92% ; jmb 16:16 BP 158 / 75 (auto/); jmb 16:16 Pulse 54 MON; Pulse Ox 94% ; jmb 16:23 Temp 97.9(O); jmb 16:46 BP 154 / 72 (auto/); jmb 16:46 Pulse 58 MON; Pulse Ox 96% ; jmb 17:01 BP 149 / 70 (auto/); jmb 17:01 Pulse 54 MON; Pulse Ox 95% ; jmb 17:16 BP 149 / 72 (auto/); jmb 17:16 Pulse 54 MON; Pulse Ox 92% ; jmb 17:31 BP 151 / 79 (auto/); jmb 17:31 Pulse 54 MON; Pulse Ox 92% ; jmb 17:46 BP 160 / 72 (auto/); jmb 17:46 Pulse 54 MON; Pulse Ox 92% ; jmb 18:01 BP 158 / 71 (auto/); jmb 18:01 Pulse 60 MON; Pulse Ox 94% ; jmb 20:52 BP 141 / 75 (auto/); jmb 20:52 Pulse 56 MON; Pulse Ox 92% ; jmb 22:05 BP 134 / 65 (auto/); jmb 22:05 Pulse 56 MON; Pulse Ox 92% ; jmb 22:46 BP 142 / 75; Pulse 54; Resp 18; Temp 98.3(TE); Pulse Ox 95% on R/A; Pain 8/10; sonia 15:31 Body Mass Index 50.84 (130.18 kg, 160.02 cm) brenton MDM: 15:24 ECG WITH READING ER PHYS+CARDIAG ordered. EDMS 15:47 Aspirin Chewable Tablet 324 mg PO once ordered. pc 15:47 Staffing Coordinator/Pulse Ox/q 30 min VS ordered. pc 15:47 IV Saline Lock ordered. pc 15:47 Rhythm Strip to chart ordered. pc 15:48 Test interpretation: EKG. pc 15:49 Basic Metabolic Profile Ordered. EDMS 15:49 CBC with Diff Ordered. EDMS 15:49 Cardiac Injury Profile Ordered. EDMS 15:49 Troponin Ordered. EDMS 15:49 Liver Profile Ordered. EDMS 15:49 Lipase Ordered. EDMS 15:49 portable chest Ordered. EDMS 15:50 Differential Diagnosis: chest pain for 16 hours with cardiac risk factors r/o ACS; pc multiple vague complaints without emergent presentation that may be evaluated by her PCP as an out-patient. Plan: labs, EKG, CXR, meds. 16:13 Basic Metabolic Profile Reviewed. pc 16:13 CBC with Diff Reviewed. pc 16:13 Liver Profile Reviewed. pc 16:13 Cardiac Injury Profile Reviewed. pc 16:13 Troponin Reviewed. pc 16:13 Lipase Reviewed. pc 16:14 Redraw CIP &Troponin (put time in details section) ordered. pc 16:14 Repeat EKG (put time details section) ordered. pc 16:22 Redraw CIP &Troponin (put time in details section) complete. deg 16:22 Repeat EKG (put time details section) complete. deg 16:23 CARDIAC MARKER PANEL Ordered. EDMS 16:24 ECG WITH READING ER PHYS ordered. EDMS 16:28 Financial registration complete. zo 16:29 [facility] [place] Payment Agreement was scanned into [employer] and attached to record. zo 22:41 CARDIAC MARKER PANEL Reviewed. cs11 22:41 portable chest Reviewed. cs11 22:42 ED course: Asked to follow second set of cardiac markers and EKG. EKG with sinus rate cs11 at 56 and unchanged morphology from the first. The cardiac markers are also normal.. 05/07 11:54 ECG/EKG was scanned into [employer] and attached to record. 05/08 12:46 PCR was scanned into [employer] and attached to record. gb EC/15 15:48 Rate is 61 beats/min. Rhythm is regular, Normal Sinus Rhythm. QRS [place] is Normal. [place] pc interval is normal. QRS interval is normal. QT interval is normal. No Q waves. T waves are Inverted in leads III, V1, V2. No ST changes noted. Clinical impression: Normal Sinus Rhythm and Nonspecific ST-T changes. No change from previous ECG in January,. Administered Medications: 16:02 Drug: Aspirin 324 mg [aspirin 81 mg chewable tablet (4 tabs)] Route: PO; dara Signatures: Dispatcher [employer] EDChristopher Stevens MD MD pc Murray, Denise, Machine Whitener Unit deg Margo Garcia, Reg Reg gb Clarisa Thorne Craig, DO DO cs11 Alvaro Ventuar,RN RN dara The chart was reviewed and I authenticate all verbal orders and agree with the evaluation and treatment provided.Attachments: 16:29 [facility] Payment Agreement zo 05/07 11:54 ECG/EKG gb Chart Complete MTDD
--- NOTE | 2016-05-08 23:55 | EDDOCDS ---
Nurse's Notes [facility] Name: Destinee Barry Age: 55 yrs Sex: Female : 1960 Arrival Date: 05/06/2016 Time: 15:13 Bed OBSERVATION Private MD: Osiris [facility] Diagnosis: Chest pain, unspecified Presentation: 05/06 15:18 Presenting complaint: EMS states: Patient reports of chest pressure and radiates up jmb behind ears. Pain started 24 hours ago. Patient reports only moving around in bedroom when pressure started. Patient reports when she moves she gets dizzy and nausea, relieved by rest. Patient has not taken her bp meds today, 170/110 by EMS. Aspirin was not taken prior to arrival. Adult Sepsis Screening: The patient does not have new or worsening altered mentation. Patient's respiratory rate is less than 22. Systolic blood pressure is greater than 100. Patient has a qSOFA score of 0- Negative Sepsis Screen. Suicide/Homicide risk assessment- the patient denies having any suicidal and/or homicidal ideations and does not present with any other emotional, behavioral or mental health complaints. Status: Patient is not a service superintendent or dependent. Transition of care: patient was not received from another setting of care. 15:18 Acuity: JAZIEL Level 3 [facility] 15:18 Method Of Arrival: Ambulance [facility] Triage Assessment: 15:26 General: Appears in no apparent distress, Behavior is appropriate for age, cooperative. b Pain: Location: chest Pain currently is 9 out of 10 on a pain scale. Pain radiates to to neck. HIV screening NA for this visit Offered previously. Neurological: Level of Consciousness is awake, alert, obeys commands, Oriented to person, place, time, Senior Java Web Application Developer are equal bilaterally Speech is normal, Facial symmetry appears normal, Facial symmetry: tongue is midline. Cardiovascular: Capillary refill < 3 seconds Heart tones present Pulses are all present. Rhythm is regular Chest pain is described as mild, radiates neck episodes are intermittent began 24 hours ago. Respiratory: Airway is patent Respiratory effort is even, unlabored, Respiratory pattern is regular, symmetrical, Breath sounds are clear bilaterally. GI: Abdomen is obese, Bowel sounds present X 4 quads. Abd is soft and non tender X 4 quads. Derm: Skin is pink, warm & dry. Musculoskeletal: Range of motion intact in all extremities. 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 escitalopram oxalate 20 mg oral tab 1 tab once daily (Last dose: 05/06/2016 09:00) 2. cetirizine 10 mg oral chew 1 tab once daily (Last dose: 05/05/2016 09:00) 3. pravastatin 40 mg oral tab 1 tab once daily (Last dose: 05/05/2016 09:00) 4. Augmentin 875-125 mg Oral tab 1 tab every 12 hours (Last dose: 04/30/2016) 5. ondansetron HCl 4 mg Oral tab 4 mg every 8 hours (Last dose: 05/02/2016) - PMHx: ankylosing spondolosis; Depression; HLAB27; Seasonal Allergies; sinus infection; - PSHx: 2 c-sections; Hysterectomy; - The history from nurses notes was reviewed: and I agree with what is documented. - Social history: Smoking status: Patient states was never smoker of tobacco. No barriers to communication noted, The patient speaks fluent Spanish, Speaks appropriately for age. - : The pt / caregiver states he / she is not on anticoagulants. Home medication list is obtained from the patient, pill bottles. - Hospitalizations: : No recent hospitalization is reported. - Exposure Risk Screening:: None identified. - Immunization history:: All immunizations up-to-date. - Family history: Not pertinent. - Social history:: the patient is a non-smoker, the patient does not drink alcohol. Screenin:04 Screening information is obtained from the patient. Fall risk: No risks identified. jmb Assistance ADL's: requires no assistance with activities of daily living. Abuse/DV Screen: The patient / caregiver reports he/she is: not in a situation that causes fear, pain or injury. Nutritional screening: No deficits noted. home support is adequate. 22:51 Advance Directives: Currently, there is no health care proxy. There is no active DNR b order. There is no living will. There is no Power of Venetian Blind Tape Cutter. Assessment: 16:04 General: Appears in no apparent distress, Behavior is appropriate for age, cooperative, jmb Patient up to commode with assist of PETROL TANKER DRIVER. NO voiced complaints at this time. . Neurological: Level of Consciousness is awake, alert, obeys commands, Oriented to person, place, time, Speech is normal, Facial symmetry appears normal, Facial symmetry: tongue is midline. Cardiovascular: Capillary refill < 3 seconds Heart tones present Pulses are all present. Rhythm is sinus rhythm No ectopy. Respiratory: Airway is patent Respiratory effort is even, unlabored, Respiratory pattern is regular, symmetrical, Breath sounds are clear bilaterally. GI: Abdomen is obese, Bowel sounds present X 4 quads. Abd is soft and non tender X 4 quads. Derm: Skin is pink, warm & dry. Musculoskeletal: Range of motion intact in all extremities. 16:49 General: Appears in no apparent distress, comfortable, Behavior is appropriate for age, jmb cooperative, Patient laying on stretcher with at bedside. Patient voices no complaints at this time. . Neurological: Level of Consciousness is awake, alert, obeys commands, Oriented to person, place, time. Respiratory: Airway is patent Respiratory effort is even, unlabored, Respiratory pattern is regular, symmetrical. 17:20 General: Appears in no apparent distress, comfortable, Behavior is appropriate for age, jmb cooperative, Patient laying on stretcher with family at bedside. Patient denies discomfort at this time. . Neurological: Level of Consciousness is awake, alert, obeys commands, Oriented to person, place, time. Respiratory: Airway is patent Respiratory effort is even, unlabored, Respiratory pattern is regular, symmetrical. 18:12 General: Appears in no apparent distress, comfortable, Behavior is appropriate for age, jmb cooperative, Patient laying on stretcher, patient denies discomfort at this time. . Neurological: Level of Consciousness is awake, alert, obeys commands, Oriented to person, place, time, Speech is normal. Respiratory: Airway is patent Respiratory effort is even, unlabored, Respiratory pattern is regular, symmetrical. 18:58 General: Appears in no apparent distress, comfortable, Behavior is appropriate for age, jmb cooperative. Neurological: Level of Consciousness is awake, alert, obeys commands, Oriented to person, place, time. Respiratory: Airway is patent Respiratory effort is even, unlabored, Respiratory pattern is regular, symmetrical. 19:30 General: Appears in no apparent distress, comfortable, Behavior is appropriate for age, jmb cooperative, Patient laying on stretcher, voices no complaints at this time. . Neurological: Level of Consciousness is awake, alert, obeys commands, Oriented to person, place, time. Respiratory: Airway is patent Respiratory effort is even, unlabored, Respiratory pattern is regular, symmetrical. 20:17 General: Appears in no apparent distress, comfortable, Behavior is appropriate for age, jmb cooperative. Neurological: Level of Consciousness is awake, alert, obeys commands, Oriented to person, place, time. Respiratory: Airway is patent Respiratory effort is even, unlabored, Respiratory pattern is regular, symmetrical. 20:54 General: Appears in no apparent distress, comfortable, Behavior is appropriate for age, jmb cooperative, Patient laying on stretcher watching television with at bedside. NO voiced complaints at this time. . Neurological: Level of Consciousness is awake, alert, obeys commands, Oriented to person, place, time. Respiratory: Airway is patent Respiratory effort is even, unlabored, Respiratory pattern is regular, symmetrical. 22:13 General: Appears in no apparent distress, comfortable, Behavior is appropriate for age, jmb cooperative, Patient laying on stretcher watching television. Patient at bedside. Second set of labs drawn per orders. No complaints voiced at this time. . Neurological: Level of Consciousness is awake, alert, obeys commands, Oriented to person, place, time. Respiratory: Airway is patent Respiratory effort is even, unlabored, Respiratory pattern is regular, symmetrical. 22:51 General: Patient instructed on discharge instructions. Patient asked if there were any b questions regarding discharge instructions, patient stated no. IV discontinued per hospital policy. Patient signed discharge instructions. Patient discharged in stable condition. . Vital Signs: 15:31 BP 196 / 86; Pulse 62; Resp 20; Pulse Ox 97% on R/A; Weight 130.18 kg (R); Height 5 ft. jmb 3 in. (160.02 cm) (R); Pain 9/10; 15:31 BP 196 / 86 (auto/); jmb 15:31 Pulse 62 MON; Pulse Ox 95% ; jmb 15:43 BP 170 / 88 LA Supine (man/lg); jmb 15:46 BP 180 / 87 (auto/); jmb 15:46 Pulse 66 MON; Pulse Ox 82% ; jmb 16:02 BP 184 / 84 (auto/); jmb 16:02 Pulse 66 MON; Pulse Ox 95% ; jmb 16:08 BP 176 / 79 (auto/); jmb 16:09 Pulse 70 MON; Pulse Ox 92% ; jmb 16:16 BP 158 / 75 (auto/); jmb 16:16 Pulse 54 MON; Pulse Ox 94% ; jmb 16:23 Temp 97.9(O); jmb 16:46 BP 154 / 72 (auto/); jmb 16:46 Pulse 58 MON; Pulse Ox 96% ; jmb 17:01 BP 149 / 70 (auto/); jmb 17:01 Pulse 54 MON; Pulse Ox 95% ; jmb 17:16 BP 149 / 72 (auto/); jmb 17:16 Pulse 54 MON; Pulse Ox 92% ; jmb 17:31 BP 151 / 79 (auto/); jmb 17:31 Pulse 54 MON; Pulse Ox 92% ; jmb 17:46 BP 160 / 72 (auto/); jmb 17:46 Pulse 54 MON; Pulse Ox 92% ; jmb 18:01 BP 158 / 71 (auto/); jmb 18:01 Pulse 60 MON; Pulse Ox 94% ; jmb 20:52 BP 141 / 75 (auto/); jmb 20:52 Pulse 56 MON; Pulse Ox 92% ; jmb 22:05 BP 134 / 65 (auto/); jmb 22:05 Pulse 56 MON; Pulse Ox 92% ; jmb 22:46 BP 142 / 75; Pulse 54; Resp 18; Temp 98.3(TE); Pulse Ox 95% on R/A; Pain 8/10; sonia 15:31 Body Mass Index 50.84 (130.18 kg, 160.02 cm) [facility] Vitals: 15:26 Log In Time N/A - ambulance arrival. [facility] ED Course: 15:14 Patient visited by Virgie Figueroa PCA. rs6 15:14 Osiris [facility] is Private Physician. rs6 15:14 Patient moved to Waiting rs6 15:14 Patient moved to 11 rs6 15:15 Christopher Castro MD is Attending Physician. pc 15:20 Triage Initiated [facility] 15:37 Patient visited by Gigi Zuniga. tk 15:37 EKG done. (by ED staff). Reviewed by Christopher Castro MD. tk 15:51 Lipase Sent. ms18 15:51 Liver Profile Sent. ms18 15:51 Basic Metabolic Profile Sent. ms18 15:51 CBC with Diff Sent. ms18 15:51 Cardiac Injury Profile Sent. ms18 15:51 Troponin Sent. ms18 15:51 Inserted saline lock: 20 gauge in right antecubital area and blood collected. The ms18 patient tolerated the procedure well. 15:56 Patient visited by Christopher Castro MD. pc 16:04 The patient / caregiver is instructed regarding the plan of care and ED course. Cardiac jmb monitor on. Pulse ox on. NIBP on. 16:06 Patient visited by Alvaro Ventura RN. jmb 16:14 Patient visited by Terri Ventura PCA. bnb 16:16 Pt greeted and oriented to ED. Patient advised of names of staff involved in care, bnb location of call salas, wait times and NPO status. Accompanied by Significant Other, Side rails up X 1. Side rails up X2. Assisted to bedside commode. 16:17 Patient visited by Terri Ventura PCA. bnb 16:29 [facility] Payment Agreement was scanned into [employer] and attached to record. zo 16:50 Patient visited by Alvaro Ventura RN. jmb 17:22 Patient visited by Alvaro Ventura RN. jmb 17:52 portable chest Returned. EDMS 18:13 Patient visited by Alvaro Ventura RN. jmb 18:52 Attending Physician role handed off by Christopher Castro MD cs11 18:52 Surinder White DO is Attending Physician. cs11 18:53 Patient moved to OBSERVATION cs11 18:58 Patient visited by Alvaro Ventura RN. jmb 20:18 Patient visited by Alvaro Ventura RN. jmb 20:54 Patient visited by Alvaro Ventura RN. jmb 21:56 Patient visited by Kailey Duron PCA. sonia 21:56 EKG done. (by ED staff). Reviewed by Surinder White DO. sonia 22:06 CARDIAC MARKER PANEL Sent. cln 22:16 Patient visited by Alvaro Ventura RN. jmb 22:44 Rob Atkinson is Referral Physician. cs11 22:47 Patient visited by Kailey Duron PCA. sonia 22:51 Discontinued lock intact, bleeding controlled, pressure dressing applied, No jmb redness/swelling at site. No procedures done that require assistance. 05/07 11:54 ECG/EKG was scanned into [employer] and attached to record. gb 13:09 EKG-ADULT Returned. EDMS 13:09 ECG WITH READING ER PHYS Returned. EDMS 05/08 12:46 PCR was scanned into [employer] and attached to record. gb Administered Medications: 05/06 16:02 Drug: Aspirin 324 mg [aspirin 81 mg chewable tablet (4 tabs)] Route: PO; jmb Order Results: Lab Order: Basic Metabolic Profile; SPEC'M 05/06/16 15:34 Test: GLUCOSE, FASTING; Value: 93; Range: 70-105; Units: MG/DL; Status: F Test: BLOOD UREA NITROGEN; Value: 11; Range: 7-18; Units: MG/DL; Status: F Test: CREATININE FOR GFR; Value: 0.82; Range: 0.55-1.02; Units: MG/DL; Status: F Test: GLOMERULAR FILTRATION RATE; Value: > 60.0; Range: >51; Status: F Test: SODIUM LEVEL; Value: 144; Range: 136-145; Units: MEQ/L; Status: F Test: POTASSIUM SERUM; Value: 3.7; Range: 3.5-5.1; Units: MEQ/L; Status: F Test: CHLORIDE LEVEL; Value: 105; Range: 98-107; Units: MEQ/L; Status: F Test: CARBON DIOXIDE LEVEL; Value: 32; Range: 21-32; Units: MEQ/L; Status: F Test: ANION GAP; Value: 7; Range: 8-16; Abnormal: Below low normal; Units: MEQ/L; Status: F Test: CALCIUM LEVEL; Value: 9.1; Range: 8.5-10.1; Units: MG/DL; Status: F Test Note: ; Units are mL/min/1.73 m2 Chronic Kidney Disease Staging per NKF: Stage I & II GFR >=60 Normal to Mildly Decreased Stage III GFR 30-59 Moderately Decreased Stage IV GFR 15-29 Severely Decreased Stage V GFR <15 Very Little GFR Left ESRD GFR <15 on MUSIC ARTIST Lab Order: CBC with Diff; SPEC'M 05/06/16 15:34 Test: WHITE BLOOD COUNT; Value: 5.6; Range: 4.0-10.0; Units: K/mm3; Status: F Test: RED BLOOD COUNT; Value: 4.68; Range: 4.00-5.40; Units: M/mm3; Status: F Test: HEMOGLOBIN; Value: 14.2; Range: 12.0-16.0; Units: g/dl; Status: F Test: HEMATOCRIT; Value: 41.3; Range: 36.0-47.0; Units: %; Status: F Test: MEAN CORPUSCULAR VOLUME; Value: 88.2; Range: 80.0-96.0; Units: fl; Status: F Test: MEAN CORPUSCULAR HEMOGLOBIN; Value: 30.4; Range: 27.0-33.0; Units: pg; Status: F Test: MEAN CORPUSCULAR HGB CONC; Value: 34.5; Range: 32.0-36.5; Units: g/dl; Status: F Test: RED CELL DISTRIBUTION WIDTH; Value: 12.2; Range: 11.5-14.5; Units: %; Status: F Test: PLATELET COUNT, AUTOMATED; Value: 193; Range: 150-450; Units: k/mm3; Status: F Test: NEUTROPHILS %; Value: 55.6; Range: 36.0-66.0; Units: %; Status: F Test: LYMPH %; Value: 29.8; Range: 24.0-44.0; Units: %; Status: F Test: MONO %; Value: 5.5; Range: 0.0-5.0; Abnormal: Above high normal; Units: %; Status: F Test: EOS %; Value: 3.8; Range: 0.0-3.0; Abnormal: Above high normal; Units: %; Status: F Test: BASO %; Value: 0.6; Range: 0.0-1.0; Units: %; Status: F Test: LARGE UNSTAINED CELL %; Value: 4.7; Range: 0.0-4.0; Abnormal: Above high normal; Units: %; Status: F Test: NEUTROPHILS #; Value: 3.1; Range: 1.8-7.7; Units: K/mm3; Status: F Test: LYMPH #; Value: 1.7; Range: 1.5-4.5; Units: K/mm3; Status: F Test: MONO #; Value: 0.3; Range: 0.0-0.8; Units: K/mm3; Status: F Test: EOS #; Value: 0.2; Range: 0.0-0.50; Units: K/mm3; Status: F Test: BASO #; Value: 0.0; Range: 0.0-0.2; Units: K/mm3; Status: F Test: LARGE UNSTAINED CELL #; Value: 0.3; Range: 0.0-0.4; Units: K/mm3; Status: F Lab Order: Cardiac Injury Profile; [facility] 05/06/16 15:34 Test: CPK CREATINE PHOSPHOKINASE; Value: 74; Range: 26-192; Units: U/L; Status: F Test: CK-MB VALUE MASS; Value: 1.0; Range: 0.0-3.6; Units: NG/ML; Status: F Test: MB/CK RELATIVE INDEX; Value: 1.35; Range: < OR =4; Status: F Test Note: ; DIAGNOSIS CRITERIA MMB ng/ml Relative Index (RI) NON-AMI < or = 5 N/A PRO ZONE > 5 < or = 4 AMI > 5 > 4 Lab Order: Troponin; [facility] 05/06/16 15:34 Test: TROPONIN I; Value: < 0.02; Range: < 0.10; Units: NG/ML; Status: F Test Note: ; Troponin I Reference Interval for [employer]ens Hlidacky.cz LOCI: 99th Percentile= 0.00-0.045 ng/ml Risk Stratification: <= 0.10 ng/ml Decreased Risk for Adverse Clinical Events. 0.10-1.50 ng/ml Increased Risk for Adverse Clinical Events. Evaluation of additional criterion and/or repeat testing in 2-6 hours is suggested to rule out myocardial damage. >= 1.50 ng/ml Indicative of Myocardial Injury. Lab Order: Liver Profile; [facility] 05/06/16 15:34 Test: AST/SGOT; Value: 25; Range: 15-37; Units: U/L; Status: F Test: ALT/SGPT; Value: 39; Range: 12-78; Units: U/L; Status: F Test: ALKALINE PHOSPHATASE; Value: 72; Range: 45-117; Units: U/L; Status: F Test: BILIRUBIN,TOTAL; Value: 0.4; Range: 0.2-1.0; Units: MG/DL; Status: F Test: BILIRUBIN,DIRECT; Value: 0.1; Range: 0.0-0.2; Units: MG/DL; Status: F Test: TOTAL PROTEIN; Value: 7.5; Range: 6.4-8.2; Units: GM/DL; Status: F Test: ALBUMIN; Value: 3.5; Range: 3.2-5.2; Units: GM/DL; Status: F Test: ALBUMIN/GLOBULIN RATIO; Value: 0.88; Range: 1.00-1.93; Abnormal: Below low normal; Status: F Lab Order: Lipase; SPEC'M 05/06/16 15:34 Test: LIPASE; Value: 212; Range: 73-393; Units: U/L; Status: F Lab Order: CARDIAC MARKER PANEL; SPEC'M 05/06/16 22:06 Test: CPK CREATINE PHOSPHOKINASE; Value: 55; Range: 26-192; Units: U/L; Status: F Test: CK-MB VALUE MASS; Value: 1.0; Range: 0.0-3.6; Units: NG/ML; Status: F Test: MB/CK RELATIVE INDEX; Value: 1.81; Range: < OR =4; Status: F Test: TROPONIN I; Value: < 0.02; Range: < 0.10; Units: NG/ML; Status: F Test Note: ; DIAGNOSIS CRITERIA MMB ng/ml Relative Index (RI) NON-AMI < or = 5 N/A PRO ZONE > 5 < or = 4 AMI > 5 > 4 Radiology Order: EKG-ADULT Test: EKG-ADULT REASON FOR EXAMINATION: Chest Pain; Stationary ECG Study; [facility] - ED; ; Test Date: 2016-05-06; Pat Name: DESTINEE BARRY Department:; Room: -; Gender: F Consumer Affairs Specialist: tk; : 1960 Requested By: Christopher Jules; Order Number: [id number] Reading MD: Larissa Roberts; Measurements; Intervals Edison; Rate: 61 P: 44; ME: 167 QRS: -3; QRSD: 108 T: 18; QT: 442; QTc: 449; Interpretive Statements; SINUS RHYTHM; NSTTW ABNORMALITY; SIMILAR 01/22/12; Electronically Signed On 05-07-2016 12:52:30 EST by Larissa Roberts; Radiology Order: portable chest Test: portable chest REASON FOR EXAMINATION: Chest Pain; Clinical: Chest pain .; ; Comparison: None .; ; Findings:; The mediastinum and cardiac silhouette are stable and within normal limits for; portable technique. The lung felix are clear without acute consolidation,; effusion, or pneumothorax. Skeletal structures are intact.; ; Impression:; Normal portable chest x-ray; ; ; Signed by; Sincere Rolon MD 05/06/2016 05:02 P; Radiology Order: ECG WITH READING ER PHYS Test: ECG WITH READING ER PHYS REASON FOR EXAMINATION: CHEST PAIN; Stationary ECG Study; [facility] - ED; ; Test Date: 2016-05-06; Pat Name: DESTINEE BARRY Department:; Room: -; Gender: F Consumer Affairs Specialist: lida; : 1960 Requested By: Christopher Jules; Order Number: [id number] Reading MD: Larissa Roberts; Measurements; Intervals Edison; Rate: 56 P: 29; ME: 184 QRS: -5; QRSD: 106 T: 9; QT: 459; QTc: 443; Interpretive Statements; SINUS BRADYCARDIA; LOW QRS VOLTAGE IN PRECORDIAL LEADS; NONSPECIFIC T-WAVE ABNORMALITY; SIMILAR 05/06/16; Electronically Signed On 05-07-2016 12:57:03 EST by Larissa Roberts; Outcome: 22:44 Discharge ordered by Provider. cs11 22:51 Discharge Assessment: Patient awake, alert and oriented x 3. No cognitive and/or jmb functional deficits noted. Patient verbalized understanding of disposition instructions. Patient awake and alert. obeys commands, Oriented to person, place and time. Patient verbalized understanding of disposition instructions. Patient has no functional deficits. patient administered narcotics - no. The following High Risk Discharge criteria are identified: None. Discharged to home ambulatory, with significant other. Condition: stable. Discharge instructions given to patient, Instructed on discharge instructions, follow up and referral plans. medication usage, Demonstrated understanding of instructions, medications, Pt was receptive of discharge instructions/ teaching. Prescriptions given X 1. No special radiology studies were completed. Property sent home with patient. 22:54 Patient left the ED. dara Signatures: Dispatcher [employer] EDMS Christopher Castro MD MD pc Margo Garcia, Reg Reg gb Mati, Zoeann zo Domi, Kailey, PETROL TANKER DRIVER PETROL TANKER DRIVER sonia Surinder White, DO DO cs11 Alvaro Ventura,RN RN Agnes Smith RN RN ms18 Virgie Figueroa, PETROL TANKER DRIVER PETROL TANKER DRIVER rs6 Gigi Zuniga, Sury, PETROL TANKER DRIVER PETROL TANKER DRIVER olesyan Terri Ventura, PETROL TANKER DRIVER PETROL TANKER DRIVER bnb Chart Complete MTDD
== END 2016-05-06 22:54 | disposition home or self-care (01) ==
LOC: M ED 15:13
DX: R07.9 Chest pain, unspecified (principal); M45.9 Ankylosing spondylitis of unspecified sites in spine; F32.9 Major depressive disorder, single episode, unspecified; J30.9 Allergic rhinitis, unspecified; Z79.899 Other long term (current) drug therapy; Z88.8 Allergy status to other drugs, medicaments and biological substances

== ENCOUNTER 2017-05-29 18:58 | Emergency (ER) | payer OTHER ==
[2017-05-29] MEDS: ASPIRIN 81 MG CHEW TABLET PO (20:13)
[2017-05-29 20:44] LABS: BASO % 0.5 % (0.0-1.0); EOS # 0.2 10^3/uL (0.0-0.50); EOS % 2.2 % (0.0-3.0); HEMATOCRIT 40.4 % (36.0-47.0); HEMOGLOBIN 13.6 g/dl (12.0-16.0); IMMATURE GRANULOCYTE % 0.3 % (0-3.0); LYMPH # 2.1 10^3/uL (1.5-4.5); MEAN CORPUSCULAR HGB CONC 33.7 g/dl (32.0-36.5); MEAN CORPUSCULAR VOLUME 89.2 fl (80.0-96.0); MONO # 0.7 10^3/uL (0.0-0.8); MONO % 9.6 % (0.0-5.0); NEUTROPHILS # 4.3 10^3/uL (1.8-7.7); NEUTROPHILS % 58.4 % (36.0-66.0); PLATELET COUNT, AUTOMATED 203 10^3/uL (150-450); RED BLOOD COUNT 4.53 10^6/uL (4.00-5.40); RED CELL DISTRIBUTION WIDTH 12.2 % (11.5-14.5); WHITE BLOOD COUNT 7.4 10^3/uL (4.0-10.0)
[2017-05-29 20:55] LABS: INR 0.91; PROTHROMBIN TIME 12.3 SECONDS (12.4-14.5)
[2017-05-29 20:56] LABS: PARTIAL THROMBOPLASTIN TIME 32.6 SECONDS (26.8-37.9)
[2017-05-29 21:12] LABS: ALBUMIN 3.5 GM/DL (3.2-5.2); ALBUMIN/GLOBULIN RATIO 0.81 (1.00-1.93); ALKALINE PHOSPHATASE 72 U/L (45-117); ALT/SGPT 36 U/L (12-78); ANION GAP 7 MEQ/L (8-16); AST/SGOT 20 U/L (7-37); BILIRUBIN,DIRECT < 0.1 MG/DL (0.0-0.2); BILIRUBIN,TOTAL 0.2 MG/DL (0.2-1.0); BLOOD UREA NITROGEN 18 MG/DL (7-18); CALCIUM LEVEL 8.9 MG/DL (8.5-10.1); CARBON DIOXIDE LEVEL 31 MEQ/L (21-32); CHLORIDE LEVEL 103 MEQ/L (98-107); CPK CREATINE PHOSPHOKINASE 95 U/L (26-192); CREATININE FOR GFR 0.79 MG/DL (0.55-1.30); FREE T4 0.84 NG/DL (0.76-1.46); GLOMERULAR FILTRATION RATE > 60.0 (>51); GLUCOSE, FASTING 113 MG/DL (70-100); POTASSIUM SERUM 4.4 MEQ/L (3.5-5.1); SODIUM LEVEL 141 MEQ/L (136-145); TOTAL PROTEIN 7.8 GM/DL (6.4-8.2); TROPONIN I < 0.02 NG/ML (< 0.10)
[2017-05-29 21:17] LABS: CK-MB VALUE MASS 1.3 NG/ML (0.0-3.6); MB/CK RELATIVE INDEX 1.36 (< OR =4); NT-PRO BNP 21 PG/ML (<125)
[2017-05-29] MEDS ORDERED: ISOVUE-370 76% 100ML VIAL (Q9967) As Ordered (21:24)
[2017-05-30 00:06] LABS: CK-MB VALUE MASS 1.4 NG/ML (0.0-3.6); CPK CREATINE PHOSPHOKINASE 89 U/L (26-192); MB/CK RELATIVE INDEX 1.57 (< OR =4); TROPONIN I < 0.02 NG/ML (< 0.10)
== END 2017-05-30 01:00 | disposition home or self-care (01) ==
LOC: M ED 05-30 01:00
DX: R07.89 Other chest pain (principal); R00.2 Palpitations; I10 Essential (primary) hypertension; K58.9 Irritable bowel syndrome, unspecified; M45.9 Ankylosing spondylitis of unspecified sites in spine; E66.9 Obesity, unspecified; Z79.899 Other long term (current) drug therapy
CPT/HCPCS: Q9967

== ENCOUNTER 2018-10-31 01:57 | Emergency (ER) | payer OTHER ==
[~2018-10-31] VITALS: Ht 157.5 cm; Wt 144.6 kg
[~2018-10-31 01:57] MED LIST changes: -/ESCI20TA; +ASPI81TA52 PO; +ECOT81TA5 PO; +LEXA1TAB2
[2018-10-31 02:41] LABS: BASO # 0.1 10^3/uL (0.0-0.2); BASO % 0.7 % (0.0-1.0); EOS # 0.2 10^3/uL (0.0-0.50); EOS % 2.9 % (0.0-3.0); HEMATOCRIT 40.7 % (36.0-47.0); HEMOGLOBIN 13.8 g/dl (12.0-15.5); LYMPH # 2.1 10^3/uL (1.5-4.5); LYMPH % 25.5 % (24.0-44.0); MEAN CORPUSCULAR HEMOGLOBIN 31.1 pg (27.0-33.0); MEAN CORPUSCULAR HGB CONC 33.9 g/dl (32.0-36.5); MEAN CORPUSCULAR VOLUME 91.7 fl (80.0-96.0); MONO # 0.8 10^3/uL (0.0-0.8); MONO % 9.2 % (0.0-5.0); NEUTROPHILS # 5.1 10^3/uL (1.8-7.7); NEUTROPHILS % 61.5 % (36.0-66.0); PLATELET COUNT, AUTOMATED 199 10^3/uL (150-450); RED BLOOD COUNT 4.44 10^6/uL (4.00-5.40); WHITE BLOOD COUNT 8.3 10^3/uL (4.0-10.0)
[2018-10-31] MEDS ORDERED: ASPIRIN 81 MG CHEW TABLET PO ONE (02:45)
[2018-10-31 02:56] LABS: BLOOD UREA NITROGEN 18 MG/DL (7-18); CALCIUM LEVEL 9.1 MG/DL (8.5-10.1); CARBON DIOXIDE LEVEL 28 MEQ/L (21-32); CHLORIDE LEVEL 105 MEQ/L (98-107); CK-MB VALUE MASS < 1.0 NG/ML (<3.6); CPK CREATINE PHOSPHOKINASE 140 U/L (26-192); CREATININE FOR GFR 0.94 MG/DL (0.55-1.30); GLOMERULAR FILTRATION RATE > 60.0 (>51); GLUCOSE, FASTING 134 MG/DL (70-100); MB/CK RELATIVE INDEX 0.71 (< OR =4); SODIUM LEVEL 140 MEQ/L (136-145); TROPONIN I < 0.02 NG/ML (< 0.10)
[2018-10-31] MEDS: NITROGLYCERIN 0.4 MG SUBL TABLET SL PRN ×2 (03:09→04:32)
[2018-10-31] MEDS ORDERED: ISOVUE-370 76% 100ML VIAL (Q9967) As Ordered ONE (04:09)
[2018-10-31 04:32] VITALS: BP 151/70
--- NOTE | 2018-10-31 05:07 | REPVR ---
EXAM: CT Angiography Chest With Contrast EXAM DATE/TIME: 10/31/2018 3:39 AM CLINICAL HISTORY: 58 years old, female; Left-sided chest pain; Additional info: Left sided chest pain TECHNIQUE: Imaging protocol: Axial computed tomographic angiography images of the chest with intravenous contrast using CT angiography protocol. Coronal and sagittal reformatted images were created and reviewed. 3D rendering: MIP reconstructed images were created and reviewed. Radiation optimization: All CT scans at this facility use at least one of these dose optimization techniques: automated exposure control; mA and/or kV adjustment per patient size (includes targeted exams where dose is matched to clinical indication); or iterative reconstruction. Contrast material: ISO; Contrast volume: 75 ml; Contrast route: AC; COMPARISON: CT ANGIO CHEST 05/29/2017 9:44 PM FINDINGS: Pulmonary arteries: Limitation for detailed assessment of distal pulmonary arterial structures by motion. No definite visualization of filling defect. Punctate pleural-based nodular density left lower lobe series 401 image 122. Aorta: Trace calcification are ossific aortic arch. Lungs: 0.6 CM nodule right upper lobe posteriorly series 401 image 23. Pleural space: Partial pleural-based 0.6 right upper lobe anteriorly series 401 image 62. Heart: Right to left ventricular ratio 0.8. Diaphragm: Elevation of right hemidiaphragm. Liver: Fatty infiltration of the liver. Lymph nodes: Unremarkable. No enlarged lymph nodes. Bones/joints: Degenerative change of the spine. Soft tissues: Unremarkable. IMPRESSION: 1. No visualized pulmonary embolus for the level of images acquired with limitation by motion. 2. Fatty infiltration of the liver. 3. Bilateral pulmonary nodules.For patients at low risk (minimal or absent history of smoking and of other known risk factors), recommend CT at 3-6 months, then consider CT at 18-24 months. For patients at high risk (history of smoking or of other known risk factors), recommend CT at 3-6 months, then CT at 18-24 months. (nia Swanson al., Fleischner Society, 2017) Electronically signed by: Lili Obando On 10/31/2018 05:07:20 AM
--- NOTE | 2018-10-31 07:59 | ED PDOC ---
Post-Departure Follow-Up dr mcmahon and dr salcedo faxed formal report of cta chest for fu Danielle Humphreys MD Oct 31, 2018 07:59
[2018-10-31 08:47] LABS: CK-MB VALUE MASS 1.2 NG/ML (<3.6); CPK CREATINE PHOSPHOKINASE 135 U/L (26-192); MB/CK RELATIVE INDEX 0.89 (< OR =4); TROPONIN I < 0.02 NG/ML (< 0.10)
--- NOTE | 2018-10-31 08:55 | REP ---
CHEST, SINGLE VIEW: There is no evidence of acute infiltrate. No pleural effusion is seen. The heart is normal in size. The mediastinal silhouette is unremarkable. The visualized osseous structures are intact. IMPRESSION: No acute pulmonary disease. Electronically Signed by Freedom Guerrero MD 11/01/2018 10:36 A
[2018-10-31 09:31] VITALS: BP 133/62
--- NOTE | 2018-10-31 20:24 | ECGEPIP ---
[facility] - ED Test Date: 2018-10-31 Pat Name: ENRIQUE BARRY Department: Room: - Gender: Female Pattern Changer: jaiden : 1960 Requested By: ROCIO Clifton Order Number: [id number] Reading MD: Danielle Mercer Measurements Intervals [place] Rate: 100 P: 47 SC: 156 QRS: QRSD: 106 T: 39 QT: 372 QTc: 480 Interpretive Statements SINUS TACHYCARDIA ABNORMAL RHYTHM ECG BASELINE WANDERING MAY AFFECT READING NONSPECIFIC ST T WAVE CHANGES CW 05/29/[address] T WAVE CHANGES Electronically Signed on 10-31-2018 20:23:43 EDT by Danielle Mercer
--- NOTE | 2018-10-31 20:28 | ECGEPIP ---
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
== END 2018-10-31 09:39 | disposition home or self-care (01) ==
LOC: M ED 01:57
DX: R91.1 Solitary pulmonary nodule (principal); R07.89 Other chest pain; I25.10 Atherosclerotic heart disease of native coronary artery without angina pectoris; E66.8 Other obesity; Z79.82 Long term (current) use of aspirin; Z88.5 Allergy status to narcotic agent; Z91.040 Latex allergy status; Z91.048 Other nonmedicinal substance allergy status
CPT/HCPCS: 36415; 71045; 71275; 80048; 82550; 82553; 84484; 85025; 93005; 93041; 94760; 99285; Q9967

== ENCOUNTER → 2019-01-08 | Outpatient (CLI) | payer OTHER ==
--- NOTE | 2019-01-09 04:40 | REP ---
Clinical: Thyroiditis. Technique: Real time jolly scale and color ultrasound examination using curved array transducer. Findings: Thyroid gland is normal in contour and size. Isthmus measures 3.8 mm in width. Right lobe measures 3.4 x 1.4 x 1.7 cm 5 x 6 x 4 mm mid pole cyst, 3 x 2 x 2 mm mid pole cyst, and 4 x 4 x 2 mm lower pole cyst with mural calcification. Left lobe measures 3.3 x 1.7 x 1.4 cm without cyst or nodule. Impression: Relatively normal thyroid gland. Few small right-sided cysts are nonspecific and likely insignificant.
--- NOTE | 2019-01-12 10:32 | DEXA ---
AP SPINE L1 - L4 1.373 1.4 2.5 LT FEMUR TOTAL 1.092 0.7 1.5 LT NECK 0.956 -0.6 0.6 RT FEMUR TOTAL 1.063 0.4 1.3 RT NECK 1.031 -0.1 1.1 TOTAL BODY TOTAL OTHER COMMENTS: Normal bone densitometry of the spine and hips. FOLLOW-UP: Recommendation for the next bone density exam: 5 years. MELANIA
== END ==
LOC: M WHC 08:44
PROVIDERS: ATTEND Family Medicine
DX: E06.9 Thyroiditis, unspecified (principal); M85.80 Other specified disorders of bone density and structure, unspecified site

== ENCOUNTER → 2019-03-30 | Outpatient (CLI) | payer OTHER ==
--- NOTE | 2019-03-30 10:54 | REP ---
CT CHEST WITHOUT CONTRAST: HISTORY: Other nonspecific abnormal finding of the lung field. Comparison CT studies of the chest are from October 31, 2018 and May 29, 2017. CT FINDINGS: There are multiple pleural based nodular plaques and subpleural fibrotic areas visualized bilaterally all of which are unchanged from the most remote prior chest CT study May 29, 2017. No significant pulmonary nodule is appreciated. No infiltrate is seen. There is no evidence of pleural effusion. Vascular calcification is noted. No hilar or mediastinal mass or adenopathy is seen. No pericardial effusion is seen. There is marked diffuse fatty infiltration of the liver again noted. No adrenal lesion is observed. No significant bony abnormality is appreciated. IMPRESSION: Multiple stable tiny sub-centimeter and subpleural pulmonary nodules unchanged since May 29, 2017 . Marked diffuse fatty infiltration of the liver. Electronically Signed by Greg Diallo MD 03/30/2019 12:15 P
== END ==
LOC: M RAD 09:20
PROVIDERS: ATTEND Internal Medicine Pulmonary Disease
DX: R91.8 Other nonspecific abnormal finding of lung field (principal); K76.0 Fatty (change of) liver, not elsewhere classified

== ENCOUNTER → 2019-05-07 | Outpatient (REF) | payer OTHER | LOC: M SFHCRHEU 13:53 | PROVIDERS: ATTEND Internal Medicine | DX: Z53.9 Procedure and treatment not carried out, unspecified reason (principal) ==

== ENCOUNTER → 2019-05-12 | Outpatient (CLI) | payer OTHER ==
[2019-05-12 10:44] LABS: BASO % 0.7 % (0.0-1.0); EOS # 0.1 10^3/uL (0.0-0.5); EOS % 1.8 % (0.0-3.0); HEMATOCRIT 39.7 % (36.0-47.0); HEMOGLOBIN 13.5 g/dl (12.0-15.5); LYMPH # 1.5 10^3/uL (1.5-5.0); LYMPH % 27.4 % (24.0-44.0); MEAN CORPUSCULAR VOLUME 91.3 fl (80.0-96.0); MONO # 0.5 10^3/uL (0.0-0.8); MONO % 8.2 % (0.0-5.0); NEUTROPHILS # 3.4 10^3/uL (1.5-8.5); NEUTROPHILS % 61.7 % (36.0-66.0); PLATELET COUNT, AUTOMATED 209 10^3/uL (150-450); RED BLOOD COUNT 4.35 10^6/uL (4.00-5.40); WHITE BLOOD COUNT 5.5 10^3/uL (4.0-10.0)
[2019-05-12 11:11] LABS: ERYTHROCYTE SEDIMENTATION RATE 52 mm/hr (0-30)
[2019-05-12 11:55] LABS: ALBUMIN 3.7 GM/DL (3.2-5.2); ALT/SGPT 30 U/L (12-78); BILIRUBIN,TOTAL 0.5 MG/DL (0.2-1.0); BLOOD UREA NITROGEN 13 MG/DL (7-18); C REACTIVE PROTEIN QUANTITATIV 1.42 MG/DL (0.00-0.30); CALCIUM LEVEL 8.8 MG/DL (8.5-10.1); CARBON DIOXIDE LEVEL 29 MEQ/L (21-32); CREATININE FOR GFR 0.82 MG/DL (0.55-1.30); GLOMERULAR FILTRATION RATE > 60.0 (>51); GLUCOSE, FASTING 119 MG/DL (70-100); TOTAL PROTEIN 7.4 GM/DL (6.4-8.2)
[2019-05-12 12:20] LABS: CHLORIDE LEVEL 101 MEQ/L (98-107); SODIUM LEVEL 136 MEQ/L (136-145)
--- NOTE | 2019-05-13 02:49 | REP ---
Clinical: Sacroiliac pain. Technique: Single frontal view a pelvis. Findings: Mild periarticular sclerosis to the sacroiliac joints cannot be excluded. No obvious effusion or osteophyte formation noted. There is no evidence for acute fracture dislocation. Degenerative changes to the visualized lower lumbosacral spine noted. Impression: Minimally increased periarticular sclerosis to the sacroiliac joints. Degenerative changes of the lower lumbosacral spine. Electronically Signed by Sincere Rolon MD 05/13/2019 02:41 A
[2019-05-13 10:16] LABS: HEPATITIS B SURFACE ANTIGEN NEGATIVE (NEGATIVE)
[2019-05-13 10:44] LABS: HEPATITIS C VIRUS ABY INDEX < 0.0 INDEX (<0.8)
== END ==
LOC: M LAB 09:51
PROVIDERS: ATTEND Internal Medicine
DX: M53.3 Sacrococcygeal disorders, not elsewhere classified (principal); Z15.89 Genetic susceptibility to other disease

== ENCOUNTER → 2019-10-22 | Outpatient (CLI) | payer OTHER ==
[2019-10-22 16:10] LABS: BASO % 0.5 % (0.0-1.0); EOS # 0.1 10^3/uL (0.0-0.5); HEMATOCRIT 39.7 % (36.0-47.0); HEMOGLOBIN 12.9 g/dl (12.0-15.5); LYMPH # 1.7 10^3/uL (1.5-5.0); LYMPH % 28.2 % (24.0-44.0); MEAN CORPUSCULAR HEMOGLOBIN 30.4 pg (27.0-33.0); MEAN CORPUSCULAR HGB CONC 32.5 g/dl (32.0-36.5); MEAN CORPUSCULAR VOLUME 93.6 fl (80.0-96.0); MONO # 0.5 10^3/uL (0.0-0.8); MONO % 7.5 % (0.0-5.0); NEUTROPHILS # 3.7 10^3/uL (1.5-8.5); NEUTROPHILS % 61.3 % (36.0-66.0); PLATELET COUNT, AUTOMATED 209 10^3/uL (150-450); RED BLOOD COUNT 4.24 10^6/uL (4.00-5.40)
[2019-10-22 16:12] LABS: ALBUMIN 3.4 GM/DL (3.2-5.2); ALT/SGPT 28 U/L (12-78); BILIRUBIN,TOTAL 0.4 MG/DL (0.2-1.0); BLOOD UREA NITROGEN 13 MG/DL (7-18); C REACTIVE PROTEIN QUANTITATIV 1.61 MG/DL (0.00-0.30); CALCIUM LEVEL 8.3 MG/DL (8.5-10.1); CARBON DIOXIDE LEVEL 29 MEQ/L (21-32); CHLORIDE LEVEL 102 MEQ/L (98-107); CREATININE FOR GFR 0.85 MG/DL (0.55-1.30); GLOMERULAR FILTRATION RATE > 60.0 (>51); GLUCOSE, FASTING 172 MG/DL (70-100); POTASSIUM SERUM 4.1 MEQ/L (3.5-5.1); SODIUM LEVEL 135 MEQ/L (136-145); TOTAL PROTEIN 7.3 GM/DL (6.4-8.2)
[2019-10-22 19:56] LABS: ERYTHROCYTE SEDIMENTATION RATE 46 mm/hr (0-30)
== END ==
LOC: M WUC 10:22
PROVIDERS: ATTEND Internal Medicine
DX: M45.7 Ankylosing spondylitis of lumbosacral region (principal)

== ENCOUNTER → 2020-02-19 | Outpatient (CLI) | payer OTHER ==
[2020-02-19 12:01] LABS: BASO % 0.5 % (0.0-1.0); EOS # 0.1 10^3/uL (0.0-0.5); EOS % 1.5 % (0.0-3.0); HEMOGLOBIN 13.4 g/dl (12.0-15.5); LYMPH # 1.6 10^3/uL (1.5-5.0); LYMPH % 25.7 % (24.0-44.0); MEAN CORPUSCULAR HEMOGLOBIN 30.2 pg (27.0-33.0); MEAN CORPUSCULAR HGB CONC 32.7 g/dl (32.0-36.5); MEAN CORPUSCULAR VOLUME 92.3 fl (80.0-96.0); MONO # 0.6 10^3/uL (0.0-0.8); MONO % 9.6 % (0.0-5.0); NEUTROPHILS # 3.8 10^3/uL (1.5-8.5); NEUTROPHILS % 62.4 % (36.0-66.0); PLATELET COUNT, AUTOMATED 209 10^3/uL (150-450); RED BLOOD COUNT 4.44 10^6/uL (4.00-5.40)
[2020-02-19 12:32] LABS: ALBUMIN 3.7 GM/DL (3.2-5.2); ALT/SGPT 30 U/L (12-78); BILIRUBIN,TOTAL 0.5 MG/DL (0.2-1.0); BLOOD UREA NITROGEN 19 MG/DL (7-18); C REACTIVE PROTEIN QUANTITATIV 1.81 MG/DL (0.00-0.30); CALCIUM LEVEL 9.3 MG/DL (8.5-10.1); CARBON DIOXIDE LEVEL 29 MEQ/L (21-32); CHLORIDE LEVEL 100 MEQ/L (98-107); GLOMERULAR FILTRATION RATE > 60.0 (>51); GLUCOSE, FASTING 118 MG/DL (70-100); POTASSIUM SERUM 4.2 MEQ/L (3.5-5.1); SODIUM LEVEL 135 MEQ/L (136-145); TOTAL PROTEIN 7.5 GM/DL (6.4-8.2)
[2020-02-19 12:50] LABS: ERYTHROCYTE SEDIMENTATION RATE 45 mm/hr (0-30)
== END ==
LOC: M WUC 09:59
PROVIDERS: ATTEND Internal Medicine
DX: M45.7 Ankylosing spondylitis of lumbosacral region (principal)

== ENCOUNTER → 2020-06-28 | Outpatient (CLI) | payer OTHER ==
[2020-06-28 14:19] LABS: BASO % 0.8 % (0.0-1.0); EOS # 0.2 10^3/uL (0.0-0.5); EOS % 4.6 % (0.0-3.0); HEMATOCRIT 40.9 % (36.0-47.0); HEMOGLOBIN 13.4 g/dl (12.0-15.5); LYMPH # 1.6 10^3/uL (1.5-5.0); LYMPH % 31.1 % (24.0-44.0); MEAN CORPUSCULAR HEMOGLOBIN 30.5 pg (27.0-33.0); MEAN CORPUSCULAR HGB CONC 32.8 g/dl (32.0-36.5); MONO # 0.6 10^3/uL (0.0-0.8); MONO % 11.2 % (2.0-8.0); NEUTROPHILS # 2.7 10^3/uL (1.5-8.5); NEUTROPHILS % 51.9 % (36.0-66.0); PLATELET COUNT, AUTOMATED 187 10^3/uL (150-450); WHITE BLOOD COUNT 5.3 10^3/uL (4.0-10.0)
[2020-06-28 14:49] LABS: ALBUMIN 3.8 GM/DL (3.2-5.2); ALT/SGPT 31 U/L (12-78); BILIRUBIN,TOTAL 0.4 MG/DL (0.2-1.0); BLOOD UREA NITROGEN 18 MG/DL (7-18); C REACTIVE PROTEIN QUANTITATIV 1.05 MG/DL (0.00-0.30); CALCIUM LEVEL 9.2 MG/DL (8.8-10.2); CARBON DIOXIDE LEVEL 29 MEQ/L (21-32); CHLORIDE LEVEL 105 MEQ/L (98-107); CREATININE FOR GFR 0.85 MG/DL (0.55-1.30); GLOMERULAR FILTRATION RATE > 60.0 (>45); GLUCOSE, FASTING 120 MG/DL (70-100); POTASSIUM SERUM 5.2 MEQ/L (3.5-5.1); SODIUM LEVEL 138 MEQ/L (136-145); TOTAL PROTEIN 7.4 GM/DL (6.4-8.2)
[2020-06-28 15:10] LABS: ERYTHROCYTE SEDIMENTATION RATE 43 mm/hr (0-30)
== END ==
LOC: M WUC 10:48
PROVIDERS: ATTEND Internal Medicine
DX: M45.7 Ankylosing spondylitis of lumbosacral region (principal)

== ENCOUNTER → 2020-08-25 | Outpatient (REF) | payer OTHER | LOC: M LAB REF 09:27 | PROVIDERS: ATTEND Dermatology | DX: D23.5 Other benign neoplasm of skin of trunk (principal) ==

== ENCOUNTER → 2021-03-29 | Outpatient (REF) | payer OTHER ==
[2021-03-29 12:55] LABS: BASO % 0.7 % (0.0-1.0); EOS # 0.1 10^3/uL (0.0-0.5); EOS % 1.7 % (0.0-3.0); HEMATOCRIT 39.8 % (36.0-47.0); HEMOGLOBIN 13.1 g/dl (12.0-15.5); LYMPH # 1.4 10^3/uL (1.5-5.0); LYMPH % 24.7 % (24.0-44.0); MEAN CORPUSCULAR HEMOGLOBIN 30.4 pg (27.0-33.0); MEAN CORPUSCULAR HGB CONC 32.9 g/dl (32.0-36.5); MEAN CORPUSCULAR VOLUME 92.3 fl (80.0-96.0); MONO # 0.5 10^3/uL (0.0-0.8); MONO % 8.8 % (2.0-8.0); NEUTROPHILS # 3.7 10^3/uL (1.5-8.5); NEUTROPHILS % 63.4 % (36.0-66.0); PLATELET COUNT, AUTOMATED 230 10^3/uL (150-450); RED BLOOD COUNT 4.31 10^6/uL (4.00-5.40); WHITE BLOOD COUNT 5.8 10^3/uL (4.0-10.0)
[2021-03-29 13:45] LABS: ERYTHROCYTE SEDIMENTATION RATE 49 mm/hr (0-30)
[2021-03-29 14:03] LABS: ALBUMIN 3.8 GM/DL (3.2-5.2); ALT/SGPT 34 U/L (12-78); BILIRUBIN,TOTAL 0.6 MG/DL (0.2-1.0); BLOOD UREA NITROGEN 13 MG/DL (7-18); C REACTIVE PROTEIN QUANTITATIV 1.86 MG/DL (0.00-0.30); CALCIUM LEVEL 9.1 MG/DL (8.8-10.2); CARBON DIOXIDE LEVEL 29 MEQ/L (21-32); CHLORIDE LEVEL 103 MEQ/L (98-107); CREATININE FOR GFR 0.65 MG/DL (0.55-1.30); GLOMERULAR FILTRATION RATE > 60.0 (>45); GLUCOSE, FASTING 108 MG/DL (70-100); SODIUM LEVEL 139 MEQ/L (136-145); TOTAL PROTEIN 7.7 GM/DL (6.4-8.2)
== END ==
LOC: M SFHCRHEU 08:55
PROVIDERS: ATTEND Internal Medicine Rheumatology
DX: M45.7 Ankylosing spondylitis of lumbosacral region (principal); Z15.89 Genetic susceptibility to other disease; R79.82 Elevated C-reactive protein (CRP); M47.816 Spondylosis without myelopathy or radiculopathy, lumbar region; Z79.899 Other long term (current) drug therapy; H20.9 Unspecified iridocyclitis

== ENCOUNTER 2021-05-26 18:01 | Emergency (ER) | payer OTHER, MEDICAID ==
[~2021-05-26] VITALS: Ht 160 cm; Wt 114.0 kg
[2021-05-26 19:16] VITALS: BP 152/70
[2021-05-26 19:19] LABS: BASO % 0.7 % (0.0-1.0); EOS # 0.4 10^3/uL (0.0-0.5); EOS % 6.1 % (0.0-3.0); HEMATOCRIT 37.4 % (36.0-47.0); HEMOGLOBIN 12.7 g/dl (12.0-15.5); LYMPH # 2.1 10^3/uL (1.5-5.0); LYMPH % 35.3 % (24.0-44.0); MEAN CORPUSCULAR HEMOGLOBIN 30.7 pg (27.0-33.0); MEAN CORPUSCULAR VOLUME 90.3 fl (80.0-96.0); MONO # 0.6 10^3/uL (0.0-0.8); MONO % 10.2 % (2.0-8.0); NEUTROPHILS # 2.8 10^3/uL (1.5-8.5); NEUTROPHILS % 47.5 % (36.0-66.0); PLATELET COUNT, AUTOMATED 170 10^3/uL (150-450); RED BLOOD COUNT 4.14 10^6/uL (4.00-5.40); WHITE BLOOD COUNT 5.9 10^3/uL (4.0-10.0)
[2021-05-26 19:40] LABS: CK-MB VALUE MASS 2.6 NG/ML (<3.6); MB/CK RELATIVE INDEX 2.1 (< OR =4)
[2021-05-26] MEDS ORDERED: NITROGLYCERIN 0.4 MG SUBL TABLET SL PRN (19:50)
[2021-05-26 20:00] LABS: ALBUMIN 3.5 GM/DL (3.2-5.2); ALT/SGPT 25 U/L (12-78); BILIRUBIN,DIRECT 0.1 MG/DL (0.0-0.2); BILIRUBIN,TOTAL 0.4 MG/DL (0.2-1.0); BLOOD UREA NITROGEN 20 MG/DL (7-18); CALCIUM LEVEL 8.8 MG/DL (8.8-10.2); CARBON DIOXIDE LEVEL 28 MEQ/L (21-32); CHLORIDE LEVEL 106 MEQ/L (98-107); CREATININE FOR GFR 0.69 MG/DL (0.55-1.30); FREE T4 1.03 NG/DL (0.76-1.46); GLOMERULAR FILTRATION RATE > 60.0 (>45); GLUCOSE, FASTING 84 MG/DL (70-100); LIPASE 102 U/L (73-393); POTASSIUM SERUM 4.1 MEQ/L (3.5-5.1); SODIUM LEVEL 142 MEQ/L (136-145); TOTAL PROTEIN 7.1 GM/DL (6.4-8.2)
[2021-05-26] MEDS ORDERED: ISOVUE-370 76% 100ML VIAL As Ordered ONE (20:05)
[2021-05-26 20:55] LABS: CK-MB VALUE MASS 2.5 NG/ML (<3.6); MB/CK RELATIVE INDEX 2.12 (< OR =4)
== END 2021-05-26 22:08 | disposition home or self-care (01) ==
LOC: M ED 18:01 → EDBD 18:01 → M ED 22:08
DX: R07.9 Chest pain, unspecified (principal); I10 Essential (primary) hypertension; E78.5 Hyperlipidemia, unspecified; E07.9 Disorder of thyroid, unspecified; M45.9 Ankylosing spondylitis of unspecified sites in spine; Z79.82 Long term (current) use of aspirin; Z88.5 Allergy status to narcotic agent; Z91.040 Latex allergy status; Z91.048 Other nonmedicinal substance allergy status
CPT/HCPCS: 36415; 71046; 71275; 80048; 80076; 82550; 82553; 83690; 84439; 84443; 85025; 93005; 93041; 93970; 94760; 99285; Q9967

== ENCOUNTER → 2021-07-26 | Outpatient (REF) | payer OTHER ==
[2021-07-26 12:45] LABS: BASO # 0.1 10^3/uL (0.0-0.2); EOS # 0.2 10^3/uL (0.0-0.5); EOS % 4.9 % (0.0-3.0); HEMATOCRIT 38.5 % (36.0-47.0); HEMOGLOBIN 12.9 g/dl (12.0-15.5); LYMPH # 1.8 10^3/uL (1.5-5.0); LYMPH % 37.6 % (24.0-44.0); MEAN CORPUSCULAR HEMOGLOBIN 30.6 pg (27.0-33.0); MEAN CORPUSCULAR HGB CONC 33.5 g/dl (32.0-36.5); MEAN CORPUSCULAR VOLUME 91.4 fl (80.0-96.0); MONO # 0.5 10^3/uL (0.0-0.8); NEUTROPHILS # 2.2 10^3/uL (1.5-8.5); NEUTROPHILS % 45.3 % (36.0-66.0); PLATELET COUNT, AUTOMATED 182 10^3/uL (150-450); RED BLOOD COUNT 4.21 10^6/uL (4.00-5.40); WHITE BLOOD COUNT 4.9 10^3/uL (4.0-10.0)
[2021-07-26 13:14] LABS: ALBUMIN 3.5 GM/DL (3.2-5.2); ALT/SGPT 30 U/L (12-78); BILIRUBIN,TOTAL 0.5 MG/DL (0.2-1.0); BLOOD UREA NITROGEN 20 MG/DL (7-18); C REACTIVE PROTEIN QUANTITATIV 0.73 MG/DL (0.00-0.30); CALCIUM LEVEL 9.4 MG/DL (8.8-10.2); CARBON DIOXIDE LEVEL 32 MEQ/L (21-32); CHLORIDE LEVEL 106 MEQ/L (98-107); GLOMERULAR FILTRATION RATE > 60.0 (>45); GLUCOSE, FASTING 104 MG/DL (70-100); POTASSIUM SERUM 4.7 MEQ/L (3.5-5.1); SODIUM LEVEL 141 MEQ/L (136-145)
[2021-07-26 13:28] LABS: ERYTHROCYTE SEDIMENTATION RATE 31 mm/hr (0-30)
== END ==
LOC: M SFHCRHEU 09:42
PROVIDERS: ATTEND Internal Medicine Rheumatology
DX: M45.7 Ankylosing spondylitis of lumbosacral region (principal); Z15.89 Genetic susceptibility to other disease; R79.82 Elevated C-reactive protein (CRP); M47.816 Spondylosis without myelopathy or radiculopathy, lumbar region; Z79.899 Other long term (current) drug therapy; H20.9 Unspecified iridocyclitis

== ENCOUNTER → 2021-12-04 | Outpatient (CLI) | payer OTHER | LOC: M RAD 14:04 | PROVIDERS: ATTEND Family Medicine Addiction Medicine | DX: R91.8 Other nonspecific abnormal finding of lung field (principal) ==

== ENCOUNTER → 2022-01-25 | Outpatient (REF) | payer OTHER, MEDICAID | LOC: M SFHCWAGY 17:34 | PROVIDERS: ATTEND Nurse Practitioner Family | DX: Z12.4 Encounter for screening for malignant neoplasm of cervix (principal) ==

== ENCOUNTER → 2022-02-06 | Outpatient (REF) | payer OTHER ==
[2022-02-06 13:08] LABS: BASO # 0.1 10^3/uL (0.0-0.2); BASO % 1.1 % (0.0-1.0); EOS # 0.1 10^3/uL (0.0-0.5); EOS % 2.6 % (0.0-3.0); HEMATOCRIT 38.8 % (36.0-47.0); HEMOGLOBIN 13.1 g/dl (12.0-15.5); LYMPH # 1.4 10^3/uL (1.5-5.0); LYMPH % 29.8 % (24.0-44.0); MEAN CORPUSCULAR HEMOGLOBIN 31.1 pg (27.0-33.0); MEAN CORPUSCULAR HGB CONC 33.8 g/dl (32.0-36.5); MEAN CORPUSCULAR VOLUME 92.2 fl (80.0-96.0); MONO # 0.5 10^3/uL (0.0-0.8); MONO % 9.8 % (2.0-8.0); NEUTROPHILS # 2.6 10^3/uL (1.5-8.5); NEUTROPHILS % 56.5 % (36.0-66.0); PLATELET COUNT, AUTOMATED 169 10^3/uL (150-450); RED BLOOD COUNT 4.21 10^6/uL (4.00-5.40); WHITE BLOOD COUNT 4.6 10^3/uL (4.0-10.0)
[2022-02-06 13:35] LABS: ALBUMIN 3.8 GM/DL (3.2-5.2); ALT/SGPT 22 U/L (12-78); BILIRUBIN,TOTAL 0.6 MG/DL (0.2-1.0); BLOOD UREA NITROGEN 16 MG/DL (7-18); C REACTIVE PROTEIN QUANTITATIV 0.82 MG/DL (0.00-0.30); CARBON DIOXIDE LEVEL 31 MEQ/L (21-32); CHLORIDE LEVEL 101 MEQ/L (98-107); ERYTHROCYTE SEDIMENTATION RATE 30 mm/hr (0-30); GLOMERULAR FILTRATION RATE > 60.0 (>45); GLUCOSE, FASTING 110 MG/DL (70-100); POTASSIUM SERUM 4.5 MEQ/L (3.5-5.1); SODIUM LEVEL 137 MEQ/L (136-145); TOTAL PROTEIN 7.4 GM/DL (6.4-8.2)
== END ==
LOC: M SFHCRHEU 08:41
PROVIDERS: ATTEND Internal Medicine Rheumatology
DX: M45.7 Ankylosing spondylitis of lumbosacral region (principal); Z15.89 Genetic susceptibility to other disease; R79.82 Elevated C-reactive protein (CRP); M47.816 Spondylosis without myelopathy or radiculopathy, lumbar region; Z79.899 Other long term (current) drug therapy; H20.9 Unspecified iridocyclitis

== ENCOUNTER → 2022-02-12 | Outpatient (REF) | payer OTHER ==
[2022-02-12 14:16] LABS: ALBUMIN 3.6 GM/DL (3.2-5.2); ALT/SGPT 22 U/L (12-78); BILIRUBIN,TOTAL 0.4 MG/DL (0.2-1.0); BLOOD UREA NITROGEN 18 MG/DL (7-18); CALCIUM LEVEL 8.9 MG/DL (8.8-10.2); CARBON DIOXIDE LEVEL 30 MEQ/L (21-32); CHLORIDE LEVEL 106 MEQ/L (98-107); CHOLESTEROL LEVEL 350 MG/DL (<200); CHOLESTEROL RISK RATIO 5.833 (<5); CREATININE FOR GFR 0.68 MG/DL (0.55-1.30); GLOMERULAR FILTRATION RATE > 60.0 (>45); GLUCOSE, FASTING 117 MG/DL (70-100); HDL CHOLESTEROL 60 MG/DL (>40); LDL CHOLESTEROL 269 MG/DL (<100); NON-HDL-C 290 MG/DL; POTASSIUM SERUM 4.9 MEQ/L (3.5-5.1); SODIUM LEVEL 139 MEQ/L (136-145); TOTAL PROTEIN 7.2 GM/DL (6.4-8.2); TRIGLYCERIDES LEVEL 106 MG/DL (<150)
== END ==
LOC: M LAB REF 12:14
PROVIDERS: ATTEND Family Medicine Addiction Medicine
DX: E78.5 Hyperlipidemia, unspecified (principal)

== ENCOUNTER → 2022-04-26 | Outpatient (REF) | payer OTHER, MEDICAID ==
[2022-04-26 14:39] LABS: ALBUMIN 3.6 G/DL (3.2-5.2); ALKALINE PHOSPHATASE 60 U/L (46-116); ALT/SGPT 23 U/L (7.0-40); AST/SGOT 24 U/L (<34); BILIRUBIN,TOTAL 0.6 MG/DL (0.3-1.2); BLOOD UREA NITROGEN 19 MG/DL (9-23); CALCIUM LEVEL 8.8 MG/DL (8.3-10.6); CARBON DIOXIDE LEVEL 30 MMOL/L (20-31); CHLORIDE LEVEL 103 MMOL/L (98-107); CHOLESTEROL LEVEL 307 MG/DL (<200); CHOLESTEROL RISK RATIO 4.98 (<5); CREATININE FOR GFR 0.64 MG/DL (0.55-1.30); GLOMERULAR FILTRATION RATE > 60.0 (>45); GLUCOSE, FASTING 103 MG/DL (74-106); HDL CHOLESTEROL 61.6 MG/DL (>40); LDL CHOLESTEROL 226.8 MG/DL (<100); NON-HDL-C 245 MG/DL; POTASSIUM SERUM 4.9 MMOL/L (3.5-5.1); SODIUM LEVEL 140 MMOL/L (136-145); TOTAL PROTEIN 6.9 G/DL (5.7-8.2); TRIGLYCERIDES LEVEL 93 MG/DL (<150)
[2022-04-26 14:43] LABS: THYROID STIMULATING HORMONE 3.033 uIU/ML (0.55-4.78)
== END ==
LOC: M LAB REF 12:46
PROVIDERS: ATTEND Family Medicine Addiction Medicine
DX: E78.5 Hyperlipidemia, unspecified (principal)

== ENCOUNTER → 2022-05-17 | Outpatient (CLI) | payer OTHER, MEDICAID ==
[2022-05-17 12:08] LABS: BASO % 0.6 % (0.0-1.0); EOS # 0.2 10^3/uL (0.0-0.5); EOS % 3.2 % (0.0-3.0); HEMATOCRIT 38.2 % (36.0-47.0); LYMPH % 29.7 % (24.0-44.0); MEAN CORPUSCULAR HEMOGLOBIN 31.1 pg (27.0-33.0); MEAN CORPUSCULAR VOLUME 91.4 fl (80.0-96.0); MONO # 0.6 10^3/uL (0.0-0.8); NEUTROPHILS # 3.9 10^3/uL (1.5-8.5); NEUTROPHILS % 57.2 % (36.0-66.0); PLATELET COUNT, AUTOMATED 168 10^3/uL (150-450); RED BLOOD COUNT 4.18 10^6/uL (4.00-5.40); WHITE BLOOD COUNT 6.9 10^3/uL (4.0-10.0)
[2022-05-17 12:21] LABS: ERYTHROCYTE SEDIMENTATION RATE 23 mm/hr (0-30)
[2022-05-17 12:30] LABS: C REACTIVE PROTEIN QUANTITATIV < 0.40 MG/DL (<1.0)
[2022-05-17 12:32] LABS: ALBUMIN 3.5 G/DL (3.2-5.2); ALKALINE PHOSPHATASE 65 U/L (46-116); ALT/SGPT 23 U/L (7.0-40); AST/SGOT 22 U/L (<34); BILIRUBIN,TOTAL 0.4 MG/DL (0.3-1.2); BLOOD UREA NITROGEN 20 MG/DL (9-23); CALCIUM LEVEL 8.7 MG/DL (8.3-10.6); CARBON DIOXIDE LEVEL 31 MMOL/L (20-31); CHLORIDE LEVEL 103 MMOL/L (98-107); CREATININE FOR GFR 0.77 MG/DL (0.55-1.30); GLOMERULAR FILTRATION RATE > 60.0 (>45); GLUCOSE, FASTING 126 MG/DL (74-106); SODIUM LEVEL 138 MMOL/L (136-145); TOTAL PROTEIN 6.9 G/DL (5.7-8.2)
== END ==
LOC: M LAB 11:36
PROVIDERS: ATTEND Internal Medicine Rheumatology
DX: M45.7 Ankylosing spondylitis of lumbosacral region (principal); Z15.89 Genetic susceptibility to other disease; R79.82 Elevated C-reactive protein (CRP); Z79.899 Other long term (current) drug therapy; H20.9 Unspecified iridocyclitis

== ENCOUNTER 2022-05-29 12:18 | Emergency (ER) | payer OTHER, MEDICAID ==
[~2022-05-29] VITALS: Ht 157.5 cm; Wt 113.1 kg
[2022-05-29] MEDS ORDERED: ALBU8.5H (12:37)
[2022-05-29] MEDS ORDERED: LEVO25TA5 (12:37)
[2022-05-29] MEDS ORDERED: CETI-24 (12:37)
[2022-05-29] MEDS ORDERED: DULO1CAP5 (12:37)
[2022-05-29] MEDS ORDERED: HUMI40IN2 (12:37)
[2022-05-29 16:24] VITALS: BP 156/85
== END 2022-05-29 16:25 | disposition home or self-care (01) ==
LOC: M ED 12:18
DX: S01.81XA Laceration without foreign body of other part of head, initial encounter (principal); W20.8XXA Other cause of strike by thrown, projected or falling object, initial encounter; Y92.89 Other specified places as the place of occurrence of the external cause; I10 Essential (primary) hypertension; E78.5 Hyperlipidemia, unspecified; J45.909 Unspecified asthma, uncomplicated; K58.9 Irritable bowel syndrome, unspecified; Z91.040 Latex allergy status; Z88.5 Allergy status to narcotic agent; Z79.899 Other long term (current) drug therapy

== ENCOUNTER → 2022-08-21 | Outpatient (CLI) | payer OTHER ==
[~2022-08-21] MED LIST changes: +ALBU8.5H; +CETI-24; +DULO1CAP5; +HUMI40IN2; +LEVO25TA5
[2022-08-21 12:13] LABS: BASO # 0.1 10^3/uL (0.0-0.2); EOS # 0.3 10^3/uL (0.0-0.5); EOS % 4.8 % (0.0-3.0); HEMATOCRIT 39.5 % (36.0-47.0); HEMOGLOBIN 13.2 g/dl (12.0-15.5); LYMPH # 1.7 10^3/uL (1.5-5.0); LYMPH % 28.8 % (24.0-44.0); MEAN CORPUSCULAR HEMOGLOBIN 30.8 pg (27.0-33.0); MEAN CORPUSCULAR HGB CONC 33.4 g/dl (32.0-36.5); MEAN CORPUSCULAR VOLUME 92.1 fl (80.0-96.0); MONO # 0.5 10^3/uL (0.0-0.8); MONO % 8.9 % (2.0-8.0); NEUTROPHILS # 3.4 10^3/uL (1.5-8.5); NEUTROPHILS % 56.2 % (36.0-66.0); PLATELET COUNT, AUTOMATED 163 10^3/uL (150-450); RED BLOOD COUNT 4.29 10^6/uL (4.00-5.40)
[2022-08-21 12:24] LABS: ERYTHROCYTE SEDIMENTATION RATE 29 mm/hr (0-30)
[2022-08-21 12:50] LABS: ALBUMIN 3.6 G/DL (3.2-5.2); ALKALINE PHOSPHATASE 65 U/L (46-116); ALT/SGPT 23 U/L (7.0-40); AST/SGOT 18 U/L (<34); BILIRUBIN,TOTAL 0.5 MG/DL (0.3-1.2); BLOOD UREA NITROGEN 16 MG/DL (9-23); CALCIUM LEVEL 8.7 MG/DL (8.3-10.6); CARBON DIOXIDE LEVEL 31 MMOL/L (20-31); CHLORIDE LEVEL 103 MMOL/L (98-107); CREATININE FOR GFR 0.68 MG/DL (0.55-1.30); GLOMERULAR FILTRATION RATE > 60.0 (>45); GLUCOSE, FASTING 103 MG/DL (74-106); POTASSIUM SERUM 4.6 MMOL/L (3.5-5.1); SODIUM LEVEL 139 MMOL/L (136-145); TOTAL PROTEIN 6.7 G/DL (5.7-8.2)
== END ==
LOC: M LAB 11:09
PROVIDERS: ATTEND Internal Medicine Rheumatology
DX: M45.7 Ankylosing spondylitis of lumbosacral region (principal); Z15.89 Genetic susceptibility to other disease; R79.82 Elevated C-reactive protein (CRP); M47.816 Spondylosis without myelopathy or radiculopathy, lumbar region; Z79.899 Other long term (current) drug therapy; H20.9 Unspecified iridocyclitis

== ENCOUNTER → 2022-10-07 | Outpatient (REF) | payer OTHER, MEDICAID | LOC: M LAB REF 16:58 | PROVIDERS: ATTEND Physician Assistant Medical | DX: J02.9 Acute pharyngitis, unspecified (principal) ==

== ENCOUNTER → 2022-11-27 | Outpatient (CLI) | payer OTHER ==
[2022-11-27 11:00] LABS: BASO % 0.5 % (0.0-1.0); EOS # 0.1 10^3/uL (0.0-0.5); HEMATOCRIT 37.5 % (36.0-47.0); HEMOGLOBIN 12.7 g/dl (12.0-15.5); LYMPH # 1.9 10^3/uL (1.5-5.0); LYMPH % 33.7 % (24.0-44.0); MEAN CORPUSCULAR HEMOGLOBIN 30.2 pg (27.0-33.0); MEAN CORPUSCULAR HGB CONC 33.9 g/dl (32.0-36.5); MEAN CORPUSCULAR VOLUME 89.3 fl (80.0-96.0); MONO # 0.6 10^3/uL (0.0-0.8); MONO % 10.1 % (2.0-8.0); NEUTROPHILS % 53.5 % (36.0-66.0); PLATELET COUNT, AUTOMATED 180 10^3/uL (150-450); WHITE BLOOD COUNT 5.6 10^3/uL (4.0-10.0)
[2022-11-27 11:10] LABS: ERYTHROCYTE SEDIMENTATION RATE 46 mm/hr (0-30)
[2022-11-27 11:30] LABS: ALBUMIN 3.7 G/DL (3.2-5.2); ALKALINE PHOSPHATASE 65 U/L (46-116); ALT/SGPT 25 U/L (7.0-40); AST/SGOT 15 U/L (<34); BILIRUBIN,TOTAL 0.4 MG/DL (0.3-1.2); BLOOD UREA NITROGEN 19 MG/DL (9-23); CALCIUM LEVEL 9.2 MG/DL (8.3-10.6); CARBON DIOXIDE LEVEL 30 MMOL/L (20-31); CHLORIDE LEVEL 103 MMOL/L (98-107); CREATININE FOR GFR 0.76 MG/DL (0.55-1.30); GLOMERULAR FILTRATION RATE > 60.0 (>45); GLUCOSE, FASTING 96 MG/DL (74-106); POTASSIUM SERUM 4.5 MMOL/L (3.5-5.1); SODIUM LEVEL 139 MMOL/L (136-145); TOTAL PROTEIN 7.2 G/DL (5.7-8.2)
== END ==
LOC: M LAB 10:31
PROVIDERS: ATTEND Internal Medicine Rheumatology
DX: M45.7 Ankylosing spondylitis of lumbosacral region (principal); R79.82 Elevated C-reactive protein (CRP); M47.816 Spondylosis without myelopathy or radiculopathy, lumbar region; H20.9 Unspecified iridocyclitis; Z15.89 Genetic susceptibility to other disease; Z79.899 Other long term (current) drug therapy

== ENCOUNTER 2022-12-13 02:47 | Emergency (ER) | payer OTHER ==
[~2022-12-13] VITALS: Ht 157.5 cm; Wt 117.8 kg
[2022-12-13 02:48] VITALS: BP 130/80; TEMP 97.5; O2SAT 98
[2022-12-13] MEDS ORDERED: NAPR-837 PO (09:35)
== END 2022-12-13 10:26 | disposition home or self-care (01) ==
LOC: M ED 02:47
DX: S83.91XA Sprain of unspecified site of right knee, initial encounter (principal); K58.9 Irritable bowel syndrome, unspecified; F41.9 Anxiety disorder, unspecified; F32.A Depression, unspecified; J45.909 Unspecified asthma, uncomplicated; Z88.5 Allergy status to narcotic agent; Z91.040 Latex allergy status; Z91.048 Other nonmedicinal substance allergy status; Z79.52 Long term (current) use of systemic steroids; Z79.899 Other long term (current) drug therapy